=== PATIENT | male | born 1960 | race Caucasian/White ===

== ENCOUNTER 2019-01-18 07:24 | Day surgery (SDC) | payer BC ==
[2019-01-15 10:40] LABS: Absolute Lymphocytes (CBC) 1.3 K/uL (0.7-4.9); Eosinophils % 2.1 % (0-4.4); Lymphocytes % 24.9 % (15.3-44.8); MPV 7.7 fL (7.6-11.3); Monocytes % 8.9 % (3.3-12.3); RBC Red Blood Cell Count 5.21 M/uL (4.33-5.43)
--- NOTE | 2019-01-15 10:43 | RAD REPORT ---
EXAM DESCRIPTION: Christos Walsh And Abdi (2 Views)01/15/2019 10:26 am CLINICAL HISTORY: Preop for hernia surgery COMPARISON: None FINDINGS: 8 millimeter nodular opacity overlies each lung base. Upper lobes are clear. Heart is normal size 3 millimeter radiopaque structure overlies the anterior soft tissues of the right chest IMPRESSION: Nodular opacity overlies each lung base probably representing nipple shadows. As 1 could represent a pulmonary nodule it is recommended that the patient have frontal and oblique views of th e chest with nipple markers for further evaluation
[2019-01-15 10:44] LABS: Potassium 3.9 mmol/L (3.5-5.1)
--- NOTE | 2019-01-15 16:43 | EKG ---
Test Date: 2019-01-15 Test Time: 10:11:35 Folder Seamer Automatic: PETRONA MEASUREMENT RESULTS: Intervals: Rate: 90 OR: 146 QRSD: 148 QT: 396 QTc: 484 [place]: P: 53 OR: 146 QRS: 39 T: 22 INTERPRETIVE STATEMENTS: Normal sinus rhythm Right bundle branch block Abnormal ECG No previous ECG available for comparison Electronically Signed On 01-15-19 16:41:44 CDT by Ozzy Victoria
[2019-01-18] MEDS ORDERED: NA CHLORIDE 0.9% 1,000 ML ONE (07:46)
[2019-01-18] MEDS ORDERED: ROCURONIUM 50 MG/5 ML VIAL IV ONE (08:34)
[2019-01-18] MEDS ORDERED: PROPOFOL 200 MG/20 ML VIAL IV ONE (08:34)
[2019-01-18] MEDS ORDERED: MIDAZOLAM HCL 2 MG/2 ML INJ ONE (08:34)
[2019-01-18] MEDS ORDERED: LIDOCAINE 1% MPF 5 ML VIAL ONE (08:34)
[2019-01-18] MEDS ORDERED: FENTANYL CITR 100 MCG/2 ML ONE ×2 (08:34→10:00)
[2019-01-18] MEDS ORDERED: CIPROFLOXACIN 400mg IV 400 MG/200 ML BAG IV ONE (08:42)
--- OUTSIDE RECORDS SUMMARY | 2019-01-18 08:53 | XMS REPORT | Continuity of Care Document ---
:1960 Author Organization [facility] Christoph Veeva [place] Care Team Providers Name Role Phone [facility] Christoph Information [place] Unavailable Unavailable Problems Problem Status Onset Classification Date Comments Source Date Reported Discharge 02/26/2017 [facility] Diagnosis: 7 Puncture wound to foot LEG INJURY Active [place] [id number] Christoph Anxiety Active Problem 02/26/2017 [facility] Hypertension Active Problem 02/26/2017 [facility] Medications Medication Details Route Status Patient Ordering Order Source Instructions Provider Date Ibuprofen 800 mg, 1 Inactive tab, 017 [place] Route: PO, Drug form: TAB, ONCE, Dosing Weight 90.909, kg, Priority: STAT, Start date: 02/23/17 21:08:00 CDT, Stop date: 02/23/17 21:08:00 CDTNotes: (Same as: Motrin) "Do Not Crush&quot ; Take with food. Acetaminophen 1 - 2 tab, Active MH 300 MG / Codeine PO, Q6H, 017 [place] Phosphate 60 MG PRN Pain, Oral Tablet X 4 day, # [Tylenol with 32 tab, 0 Codeine #4] Refill(s) ibuprofen 800 mg 800 mg=1 Active MH oral tablet tab, PO, 017 [place] Q8H, PRN Pain, Take with food, X 10 day, # 30 tab, 0 Refill(s) clindamycin 300 300 mg=1 Active MH mg oral capsule cap, PO, 017 [place] Q6H, X 10 day, # 40 cap, 0 Refill(s) Acetaminophen 1 tab, Inactive MH 325 MG / Route: 017 [place] Hydrocodone S&SPIT, Bitartrate 10 MG Drug Form: Oral Tablet TAB, [[place] 10/325] Dosing Weight 90.909, kg, ONCE, STAT, Start date: 02/23/17 19:12:00 CDT, Stop date: 02/23/17 19:12:00 CDTNotes: Do not exceed 4gm/day of acetaminop hen. (Same as: [place] 325/10) Acetaminophen 1 tab, Inactive 325 MG / Route: PO, 017 [place] Hydrocodone Drug Form: Bitartrate 7.5 TAB, MG Oral Tablet Dosing [[place] 7.5/325] Weight 84.773, kg, ONCE, STAT, Start date: 02/23/17 17:57:00 CDT, Stop date: 02/23/17 17:57:00 CDTNotes: Same as [place] 325-7.5mg Do not exceed 4gm/day of acetaminop hen. Allergies, Adverse Reactions, Alerts Substance Category Reaction Severity Reaction Status Date Comments Source type Reported penicillins Assertion Drug Active Rash <sup>1</sup allergy [place] > Immunizations Immunization Date Site Status Last Comments Source Given Updated diphtheria/pertus Left completed Wee [facility] sis, acel/tetanus 7 Deltoid adult Results No Data Provided for This Section Pathology Reports No Data Provided for This Section Diagnostic Reports Report Value Date Source Foot series DX Foot series DX 02/23/[address] [facility] CLINICAL HISTORY: - puncture wound FINDINGS/IMPRESSION: 3 views of the left foot are submitted for review. The submitted images are not optimally positioned. No displaced fractures are visualized. Soft tissue swelling is noted along the dorsum of the left foot. No radiopaque foreign body is visualized. The visualized bones demonstrate normal radiodensity. SL: EFRAIN-AYLIN Consultation Notes No Data Provided for This Section Discharge Summaries No Data Provided for This Section History and Physicals No Data Provided for This Section Vital Signs Vital Sign Value Date Comments Source Systolic (mm Hg) 131 02/24/2017 [facility] Diastolic (mm Hg) 88 02/24/2017 [facility] Respitory Rate 16 02/24/2017 [facility] Heart Rate 99 02/24/2017 [facility] Temperature Oral (F) 98.5 F 02/23/2017 [facility] Heart Rate 104 02/23/2017 [facility] Respitory Rate 18 02/23/2017 [facility] Systolic (mm Hg) 157 02/23/2017 [facility] Diastolic (mm Hg) 86 02/23/2017 [facility] Weight 90.909 02/23/2017 [facility] Height 172.72 cm 02/23/2017 [facility] BMI Calculated 30.47 02/23/2017 [facility] Encounters Location Location Encounter Encounter Reason Attending ADM DC Status Source Details Type Number For Provider Date Date Visit Outpatient [id number] ZACHARIAH 07/31 [facility] [id number] Guilherme 02/23 02/24 [facility] Domingo /2016 [facility] Procedures Procedure Code Date Perfomer Comments Source Extraction of [id number] [facility] wisdom tooth Assessment and Plan No Data Provided for This Section Plan of Care No Data Provided for This Section Social History Social History Date Source Social History TypeResponse 02/28/2016 [facility] Alcohol Type Beer. Frequency: Several times per day. Smoking Status Current every day smoker; Type: Chewing tobacco; Ready to change: No; Lives with someone who smokes; Cigarette Smoking Last 365 Days Yes; Reg Smoking Cessation Counseling Yes Family History No Data Provided for This Section Advance Directives No Data Provided for This Section Functional Status No Data Provided for This Section
--- OUTSIDE RECORDS SUMMARY | 2019-01-18 08:53 | XMS REPORT | Summary of Care ---
:1960 Author Organization [facility] Address [id number] [place] [id number]- Encounter HQ Katerine_eda(FIN) [id number] Date(s): 02/23/17 - 02/23/[address] [phone] Discharge Diagnosis: Puncture wound to foot Discharge Disposition: Home or Self Care Attending Physician: Guilherme Domingo MD Vital Signs Most recent to oldest [Reference Range]: 1 2 Height 172.72 cm (02/23/17 5:57 PM) Temperature Oral [96.4-99.1 DegF] 98.5 DegF (02/23/17 5:57 PM) Blood Pressure [90-140/60-90 mmHg] 131/88 mmHg 157/86 mmHg (02/23/17 10:17 PM) *HI* (02/23/17 5:57 PM) Respiratory Rate [14-20 BRMIN] 16 BRMIN 18 BRMIN (02/23/17 10:17 PM) (02/23/17 5:57 PM) Peripheral Pulse Rate [60-100 bpm] 99 bpm 104 bpm (02/23/17 10:17 PM) *HI* (02/23/17 5:57 PM) Weight 90.909 kg (02/23/17 5:57 PM) Body Mass Index 30.47 m2 (02/23/17 5:57 PM) Problem List Condition Effective Dates Status Health Status Informant Anxiety(Confirmed) Active Hypertension(Confirmed) Active Allergies, Adverse Reactions, Alerts Substance Reaction Severity Status penicillins1 Active 1Rash Medications clindamycin 300 mg oral capsule 300 mg=1 cap, PO, Q6H, X 10 day, # 40 cap, 0 Refill(s) Start Date: 02/23/17 Stop Date: 03/05/17 Status: Orderedibuprofen 800 mg, 1 tab, Route: PO, Drug form: TAB, ONCE, Dosing Weight 90.909, kg, Priority: STAT, Start date: 02/23/17 21:08:00 CDT, Stop date: 02/23/17 21:08:00 CDT Notes: (Same as: Motrin)"Do Not Crush" Take with food. Start Date: 02/23/17 Stop Date: 02/23/17 Status: Completedibuprofen 800 mg oral tablet 800 mg=1 tab, PO, Q8H, PRN Pain, Take with food, X 10 day, # 30 tab, 0 Refill(s) Start Date: 02/23/17 Stop Date: 03/05/17 Status: OrderedNorco 10/325 oral tablet 1 tab, Route: S&SPIT, Drug Form: TAB, Dosing Weight 90.909, kg, ONCE, STAT, Start date: 02/23/1719:12:00 CDT, Stop date: 02/23/17 19:12:00 CDT Notes: Do not exceed 4gm/day of acetaminophen. (Same as: [place] 325/10) Start Date: 02/23/17 Stop Date: 02/23/17 Status: CompletedNorco 7.5/325 oral tablet 1 tab, Route: PO, Drug Form: TAB, Dosing Weight 84.773, kg, ONCE, STAT, Start date: 02/23/17 17:57:00 CDT, Stop date: 02/23/17 17:57:00 CDT Notes: Same as [place] 325-7.5mg Do not exceed 4gm/day of acetaminophen. Start Date: 02/23/17 Stop Date: 02/23/17 Status: DiscontinuedTylenol with Codeine #4 oral tablet 1 - 2 tab, PO, Q6H, PRN Pain, X 4 day, # 32 tab, 0 Refill(s) Start Date: 02/23/17 Stop Date: 02/27/17 Status: Ordered Results No data available for this section Immunizations Given and Recorded Vaccine Date Status Refusal Reason diphtheria/pertussis, acel/tetanus adult 02/23/17 Given Procedures Procedure Date Related Diagnosis Body Site Extraction of wisdom tooth Social History Social History Type Response Alcohol Type Beer. Frequency: Several times per day. Smoking Status Current every day smoker; Type: Chewing tobacco; Ready to change: No; Lives with someone who smokes; Cigarette Smoking Last 365 Days Yes; Reg Smoking Cessation Counseling Yes Assessment and Plan No data available for this section
[2019-01-18] MEDS ORDERED: EPHEDRINE SULF 50 MG/ML VIAL ONE (09:16)
[2019-01-18] MEDS ORDERED: NS 0.9% VIAL 10 ML ONE (09:16)
[2019-01-18] MEDS ORDERED: KETOROLAC 30 MG/ML INJ ONE (09:22)
[2019-01-18] MEDS ORDERED: GLYCOPYRROLATE 0.2 MG/ML SYR ONE (09:22)
[2019-01-18] MEDS ORDERED: NEOSTIGMINE 1 MG/ML -10 ML VIAL ONE (09:23)
[2019-01-18] MEDS ORDERED: ONDANSETRON 4 MG/2 ML VIAL ONE (09:23)
--- NOTE | 2019-01-18 10:20 | P.BOP ---
Preoperative diagnosis: bilateral tender inguinal hernias Postoperative diagnosis: same Primary procedure: Laparoscopic repair of right and left inguinal hernias with mesh Executive Sales Manager: CHRISTOS SPANGLER (INSURANCE LAW SPECIALIST) Estimated blood loss: <10cc Specimen: none Findings: bilateral inguinal hernias Anesthesia: General Complications: None Implants: 3d mesh medium bilateral Transferred to: Recovery Room Condition: Good
[2019-01-18] MEDS: HYDROMORPHONE HCL 1 MG/ML INJ ONE ×2 (10:39→10:48)
--- NOTE | 2019-01-29 04:06 | OP ---
Date of Procedure: 01/18/2019 Surgeon: Porter Warner MD Metallic Yarn Slitting Machine Operator: JOSE Antonio. Preoperative Diagnosis: Bilateral tender inguinal hernias. Postoperative Diagnosis: Bilateral tender inguinal hernias. Procedure: 1.Laparoscopic repair of right inguinal hernia with mesh. 2.Laparoscopic repair of left inguinal hernia with mesh. Estimated Blood Loss: Less than 10 cc. Specimen: None. Findings: Bilateral inguinal hernias. Anesthesia: General plus local. Implant: A 3D medium mesh, right and left. Indications: This is the case of a 58-year-old patient, comes to us with a tender bilateral inguinal hernias. The benefits, alternatives, and risks of repair laparoscopic versus open with the use of m esh fully explained to the patient, which included, but are not limited to infection, bleeding, damag e to adjacent structures, anesthesia complication, chronic numbness, chronic pain, testicular damage, ME, even . He also understands this may not relieve any symptoms, he might need more than one surgical intervention. He understands we have intention to use mesh in that region, the pros and con s of mesh placement were discussed in details. He was allowed to ask questions and all of them were answered to his satisfaction. At the end of the discussion, he did allow me to use mesh. The area o f concern left and right was marked by me and the patient in the holding room. Description Of Procedure: Patient was brought to the operating room, placed in supine position. Ane sthesia was done without complication. Abdominal area was prepped and draped in a sterile fashion an d inguinal area too. An incision was made again in the infraumbilical region. Incision was carried down until we find an anterior rectus sheath. It was opened and the muscle retracted laterally to ex pose the posterior rectus sheath. The extraperitoneal space was developed with the help of blunt dis section gently and a balloon tipped space maker catheter placed into the area, which was opened and t oward the pubic symphysis. A laparoscope was placed in the area and the balloon was inflated under d irect visualization to create the extraperitoneal space. The balloon was deflated, it was a double s ize balloon. Then, a 5 mm trocar was placed after insufflating the area just above the pubic symphys is and other one between the first and second one. The preperitoneal space was further developed by exposing the inferior epigastric vessels and keeping them anteriorly. Pa ligament was dissected laterally to the junction with the iliac veins. The dissection was continued inferiorly to the iliop ubic tract, avoiding damage to the femoral branch of the genitofemoral nerve and the lateral femoral cutaneous nerve. The cord structures were visualized on the left side and the right side. They were skeletonized. The hernia sac was reduced with gentle traction back into the peritoneal space. The same was done with the left and right side. At that moment, we proceeded to introduce a 3D mesh medi um, first on the left side on the working space to cover the direct/indirect spaces and we secured th at mesh into place with SorbaFix laterally and superior to the pubic tract and inferomedial to the Co oper ligament. The same was done with the opposite side on the right side, once again securing that in place laterally and superior to the iliopubic tract and inferomedial to the Pa ligament. We i nspected the area once again, ensuring adequate hemostasis. A local anesthetic was applied over the area and holding the mesh in place and making sure that the hernia sac was still reduced into the per itoneal cavity. We proceeded to deflate the area under direct visualization and removed the 5 mm tro cars, closed the anterior rectus sheath with 1 Vicryl and approximated the skin. Sponge count, instr ument counts were correct. At the end of the case, the testicles were in the scrotum. Patient was s ent to recovery in stable condition. Disposition: Home. Activity: As tolerated. No heavy lifting. Followup: Follow up in my office in 1 week. Call for appointment on [phone]. Keep the area dry fo r 48 hours, then may shower. Medications: See orders. HM/MODL Voice ID: [id number] Report ID: [id number]
== END 2019-01-18 12:36 | disposition home or self-care (01) ==
LOC: OR 07:24
PROVIDERS: ATTEND Surgery
PROC: 0YUA0JZ Supplement Bilateral Inguinal Region with Synthetic Substitute, Open Approach (ICD-10-PCS; principal; 2019-01-18 09:15)
DX: K40.20 Bilateral inguinal hernia, without obstruction or gangrene, not specified as recurrent (principal); E11.40 Type 2 diabetes mellitus with diabetic neuropathy, unspecified; I10 Essential (primary) hypertension; K21.9 Gastro-esophageal reflux disease without esophagitis; Z79.84 Long term (current) use of oral hypoglycemic drugs; Z79.899 Other long term (current) drug therapy
CPT/HCPCS: 36415; 71046; 80048; 82962; 85025; 93005; J0744; J1170; J2250; J2405; J2704; J2710; J3010; J7030

== ENCOUNTER 2021-11-24 20:11 | Emergency (ER) | payer BC ==
--- OUTSIDE RECORDS SUMMARY | 2021-11-24 20:15 | XMS REPORT | Continuity of Care Document ---
:1960 Author Organization [facility] Address [address] [place] [address] Care Team Providers Name Role Phone Lit Attending Clinician Unavailable Savage Attending Clinician Unavailable [facility]FF Attending Clinician Unavailable Lit Admitting Clinician Unavailable Savage Admitting Clinician Unavailable Payers Payer Name Policy Type Policy Number Effective Date Expiration Date S ru[place] [id number] 2004 00:00:00 Problems Condition Condition Condition Status Onset Resolution Last Treating Co mments Source Name Details Category Date Date Treatment Clinician Date Elevated Elevated Problem Active [facility] Liver 709 Family enzymes Enzymes 00:00: Practic level Level 00 e Alcohol Alcohol Problem Active [facility] intake Intake 708 Family above above 00:00: Practic recommende Recommende 00 e d sensible d Sensible limits Limits Type 2 Type 2 Problem Active [facility] diabetes Diabetes 703 Family mellitus Mellitus 00:00: Practi c 00 e Mixed Mixed Problem Active [facility] hyperlipid Hyperlipid 919 [facility] emia emia 00:00: Practic 00 e LEG INJURY Diagnosis Active 2017-04-21 Memoria 8-13 13:24:00 l LEG 00:00: Christoph INJURY 00 Active 02/23/2017 [facility] Hypogonadi Hypogonadi Problem Active [facility] sm 11-11 Family 00:00: Practic 00 e Anxiety Anxiety Problem Active [facility] 11-11 Family 00:00: Practic 00 e Essential Essential Problem Active Marcial shira hypertensi Hypertensi 11-11 Fa teodora on on 00:00: Practic 00 e Primary Primary Problem Active [facility] erectile Erectile 5- Family dysfunctio Dysfunctio 00:00: Pr actic n n 00 e Hypertensi Problem Active 2017-02-26 M emoria ve 00:45:40 l disorder, Nathalie systemic Hypertensi arterial ve (disorder) disorder, systemic arterial (disorder) Active Problem 02/26/2017 [facility] History of Past Illness Condition Condition Condition Status Onset Resolution Last Treating Co mments Source Name Details Category Date Date Treatment Clinician Date Puncture Problem 2017-02-26 2017-02-26 Memoria wound 02-23 00:45:40 00:45:40 l without Puncture 05:00: Rocio nn foreign wound 00 body, without unspecifie foreign d foot, body, initial unspecifie encounter d foot, initial encounter 02/23/2017 02/26/2017 [facility] Allergies, Adverse Reactions, Alerts Allergy Allergy Status Severity Reaction(s) Onset Inactive Treating Comm ents Source Name Type Date Date Clinician penicill penicill Active Memori a ins<sup> ins<sup> l 1</sup> 1</sup> Christoph PENICILL Allergy Active [facility] INS to Family substanc Practic e e Social History Social Habit Start Date Stop Date Quantity Comments Source Social History 2016-02-28 2016-02-28 [facility] 23:53:02 23:53:02 Smoking Status Start Date Stop Date Source Never Smoker [facility] Medications Ordered Filled Start Stop Current Ordering Indication Dosage Frequency Signature Comments Components Source Medication Medication Date Date Medication? Clinician (SIG) Name Name Ibuprofen No Notes: Memori a 8-14 (Same as: l 02:08: Motrin) Nathalie 00 "Do Not Crush" Take with food. Acetaminoph Yes 1 - 2 tab, Memoria en 300 MG / 8-14 PO, Q6H, l Codeine 02:02: PRN Pain, Rocio nn Phosphate 00 X 4 day, # 60 MG Oral 32 tab, 0 Tablet Refill(s) [Tylenol with Codeine #4] ibuprofen Yes 800 mg = 1 Me moria 800 mg oral 8-14 tab, PO, l tablet 02:02: Q8H, PRN Christoph 00 Pain, Take with food, X 10 day, # 30 tab, 0 Refill(s) clindamycin Yes 300 mg = 1 Memoria 300 mg oral 8-14 cap, PO, l capsule 02:02: Q6H, X 10 Rocio nn day, # 40 cap, 0 Refill(s) Acetaminoph No Notes: Do M emoria en 325 MG / 02-24 not exceed l Hydrocodone 00:12: 4gm/day of Nathalie Bitartrate 00 acetaminop 10 MG Oral hen. Tablet (Same as: [Hollis Hollis 10/325] 325/10) Acetaminoph No Notes: Carlos unique en 325 MG / 02-23 Same as l Hydrocodone 22:57: Hollis Rocio nn Bitartrate 00 325-7.5mg 7.5 MG Oral Do not Tablet exceed [Hollis 4gm/day of 7.5/325] acetaminop hen. amlodipine amlodipine No amlodipine [facility] 10 mg 10 mg 10 mg Family tablet TAKE tablet TAKE tablet Practic 1 TABLET BY 1 TABLET BY TAKE 1 e MOUTH EVERY MOUTH EVERY TABLET BY DAY IN THE DAY IN THE MOUTH EVENING EVENING EVERY DAY IN THE EVENING Farxiga 10 Farxiga 10 No Farxiga 10 Village mg tablet mg tablet mg tablet Family TAKE 1 TAKE 1 TAKE 1 Practic TABLET BY TABLET BY TABLET BY e MOUTH EVERY MOUTH EVERY MOUTH DAY DAY EVERY DAY glipizide glipizide No glipizide [facility] 2.5 2.5 2.5 Family mg-metformi mg-metformi mg-metform Practic n 500 mg n 500 mg in 500 mg e tablet TAKE tablet TAKE tablet 1 TABLET BY 1 TABLET BY TAKE 1 MOUTH TWICE MOUTH TWICE TABLET BY DAILY WITH DAILY WITH MOUTH MEALS MEALS TWICE DAILY WITH MEALS olmesartan olmesartan No olmesartan [facility] 40 mg 40 mg 40 mg Family tablet TAKE tablet TAKE tablet Practic 1 TABLET BY 1 TABLET BY TAKE 1 e MOUTH EVERY MOUTH EVERY TABLET BY DAY DAY MOUTH EVERY DAY omeprazole omeprazole No omeprazole [facility] 40 mg 40 mg 40 mg Family capsule,del capsule,del capsule,de Practic ayed ayed layed e release release release TAKE 1 TAKE 1 TAKE 1 CAPSULE BY CAPSULE BY CAPSULE BY MOUTH EVERY MOUTH EVERY MOUTH DAY DAY EVERY DAY OneTouch OneTouch No OneTouch Marcial shira Delica Delica [facility] Family Lancets 30 Lancets 30 Lancets 30 Practic gauge gauge gauge e OneTouch OneTouch No OneTouch Marcial shira Delica Plus Delica Plus [facility] Lancet 33 Lancet 33 Plus Pract ic gauge USE gauge USE Lancet 33 e ONCE DAILY ONCE DAILY gauge USE ONCE DAILY OneTouch OneTouch No OneTouch Marcial shira Ultra Test Ultra Test Ultra Test Family strips TEST strips TEST strips Practic ONCE DAILY ONCE DAILY TEST ONCE e DAILY OneTouch OneTouch No OneTouch Marcial shira Ultra2 Ultra2 Ultra2 Family Meter USE Meter USE Meter USE Practic DIRECTED DIRECTED e DIRECTED Ozempic Ozempic No Ozempic Vill[facility] e 0.25 mg or 0.25 mg or 0.25 mg or Family 0.5 mg (2 0.5 mg (2 0.5 mg (2 Practic mg/1.5 mL) mg/1.5 mL) mg/1.5 mL) e subcutaneou subcutaneou subcutaneo s pen s pen us pen injector injector injector INJECT 0.5 INJECT 0.5 INJECT 0.5 MG UNDER MG UNDER MG UNDER THE SKIN THE SKIN THE SKIN ONCE WEEKLY ONCE WEEKLY ONCE WEEKLY rosuvastati [facility]suvastati No [facility] 10 mg n 10 mg in 10 mg Famil y tablet TAKE tablet TAKE tablet Practic 1 TABLET BY 1 TABLET BY TAKE 1 e MOUTH EVERY MOUTH EVERY TABLET BY DAY IN THE DAY IN THE MOUTH EVENING EVENING EVERY DAY IN THE EVENING tadalafil tadalafil No tadalafil [facility] 20 mg 20 mg 20 mg Family tablet TAKE tablet TAKE tablet Practic 1 TABLET BY 1 TABLET BY TAKE 1 e MOUTH EVERY MOUTH EVERY TABLET BY DAY DAY MOUTH NEEDED NEEDED EVERY DAY NEEDED [facility]ulosin [facility] 0.4 mg 0.4 mg 0.4 mg Family capsule capsule capsule Practi c TAKE 1 TAKE 1 TAKE 1 e CAPSULE BY CAPSULE BY CAPSULE BY MOUTH EVERY MOUTH EVERY MOUTH DAY DAY EVERY DAY testosteron testosteron No [facility] e 1.62 % e 1.62 % ne 1.62 % Fa teodora (40.5 (40.5 (40.5 Practic mg/2.5 mg/2.5 mg/2.5 e gram) gram) gram) transdermal transdermal transderma gel packet gel packet l gel APPLY 1 APPLY 1 packet PACKET PACKET APPLY 1 TOPICALLY TOPICALLY PACKET TO THE TO THE TOPICALLY AFFECTED AFFECTED TO THE AREA EVERY AREA EVERY AFFECTED MORNING MORNING AREA EVERY MORNING venlafaxine venlafaxine No venlafaxin [facility] ER 150 mg ER 150 mg e ER 150 F amily capsule,ext capsule,ext mg P ractic ended ended capsule,ex e release 24 release 24 tended hr TAKE 1 hr TAKE 1 release 24 CAPSULE BY CAPSULE BY hr TAKE 1 MOUTH EVERY MOUTH EVERY CAPSULE BY DAY DAY MOUTH EVERY DAY Immunizations Ordered Immunization Filled Immunization Date Status Commen ts Source Name Name pneumococcal pneumococcal 2020-01-19 Completed [facility] Fa teodora polysaccharide PPV23 polysaccharide PPV23 18:11:00 Practice Influenza, Influenza, 2017-04-01 Completed [facility] injectable, MDCK, injectable, MDCK, 13:27:00 Practice quadrivalent quadrivalent diphtheria/pertussis, 2017-02-[address] [facility] orial acel/tetanus adult 02:55:00 Gui paniagua Vital Signs Vital Name Observation Time Observation Value Comments Source BP Diastolic 2021-10-23 00:00:00 95 mm[Hg] [facility] Practice Height 2021-10-23 00:00:00 68 [in_i] [facility] Practice BMI (Body Mass Index) 2021-10-23 00:00:00 29.5 kg/m2 [facility] Practice BP Systolic 2021-10-23 00:00:00 162 mm[Hg] [facility] Body Weight 2021-10-23 00:00:00 194 [lb_av] [facility] Practice BP Diastolic 2021-03-01 00:00:00 98 mm[Hg] [facility] Practice Height 2021-03-01 00:00:00 68 [in_i] [facility] Practice BMI (Body Mass Index) 2021-03-01 00:00:00 28.1 kg/m2 [facility] Practice BP Systolic 2021-03-01 00:00:00 155 mm[Hg] [facility] Practice Body Weight 2021-03-01 00:00:00 185 [lb_av] [facility] BP Diastolic 2020-07-03 00:00:00 89 mm[Hg] [facility] Practice Height 2020-07-03 00:00:00 68 [in_i] [facility] Practice BMI (Body Mass Index) 2020-07-03 00:00:00 29 kg/m2 [facility] Practice BP Systolic 2020-07-03 00:00:00 137 mm[Hg] [facility] Practice Body Weight 2020-07-03 00:00:00 191 [lb_av] [facility] Practice BP Diastolic 2020-01-19 00:00:00 94 mm[Hg] [place] Height 2020-01-19 00:00:00 68 [in_i] [place] BMI (Body Mass Index) 2020-01-19 00:00:00 29.3 kg/m2 [place] BP Systolic 2020-01-19 00:00:00 150 mm[Hg] [place] Body Weight 2020-01-19 00:00:00 193 [lb_av] [place] Systolic (mm Hg) 2017-02-24 03:17:00 Carlos rial Nathalie Diastolic (mm Hg) 2017-02-24 03:17:00 Mem orial Christoph Respitory Rate 2017-02-24 03:17:00 Memori al Christoph Heart Rate 2017-02-24 03:17:00 [facility] Temperature Oral (F) 2017-02-23 22:57:00 98.5 F [facility] Heart Rate 2017-02-23 22:57:00 [facility] Nathalie Respitory Rate 2017-02-23 22:57:00 Memori al Nathalie Systolic (mm Hg) 2017-02-23 22:57:00 Carlos rial Nathalie Diastolic (mm Hg) 2017-02-23 22:57:00 Mem orial Christoph Weight 2017-02-23 22:57:00 [facility] Nathalie Height 2017-02-23 22:57:00 172.72 cm [facility] Nathalie BMI Calculated 2017-02-23 22:57:00 Memori al Nathalie Procedures Procedure Date / Time Performed Performing Clinician [facility] e Hernia Repair 2018-07-14 00:00:00 [facility] Lynda neves Practice Orthopedic Surgery 2018-07-14 00:00:00 [facility] Colonoscopy 2017-07-14 00:00:00 [facility] ly [facility] Planned Activity Planned Date Details Comments Source Diagnostic Test Pending 2021-10-23 HbA1c (hemoglobin [facility] 00:00:00 A1c), blood [code Practice = HbA1c (hemoglobin A1c), blood] Diagnostic Test Pending 2021-10-23 lipid panel, Vill age Family 00:00:00 serum [code = Practice lipid panel, serum] Diagnostic Test Pending 2021-10-23 CMP, serum or Marcial shira Family 00:00:00 plasma [code = Practice CMP, serum or plasma] Diagnostic Test Pending 2021-10-23 CBC w/ auto diff [facility] Family 00:00:00 [code = CBC w/ Practice auto diff] Diagnostic Test Pending 2021-10-23 testosterone, Marcial silva Family 00:00:00 total, serum Practice [code = testosterone, total, serum] Future Appointment 2022-01-22 Harika Torres [facility] age Family 00:00:00 [id number] [facility]; [address], [place] [address] Instructions [facility] Practice Encounters Start End Encounter Admission Attending Care Care Encounter Source Date/Time Date/Time Type Type Clinicians Facility Department ID 2021-10-23 2021-10-23 Outpatient Zuñiga-Gor_M VFP VFP [id number] [facility] 11:46:00 11:46:00 [id number] Family Practic e 2021-10-23 2021-10-23 Outpatient Zuñiga-Teofilo_M_ VFP VFP [id number] [facility] 11:46:00 11:46:00 BELÉN [id number] Family Practic e 2021-10-23 2021-10-23 Harika O VFP [place] - [id number] [facility] 00:00:00 00:00:00 Brian [facility] Lynda neves MD: [id number] Medical - Prac tic Shadow VM_NASIR_Maxx e [facility], [address], [place] [address] , Ph. 2021-10-18 2021-10-18 Outpatient Zuñiga-Gor_M VFP VFP [id number] [facility] 01:59:00 01:59:00 [id number] Family Practic e 2021-10-18 2021-10-18 Outpatient Zuñiga-Gor_M VFP VFP [id number] [facility] 01:59:00 01:59:00 [id number] Family Practic e 2021-07-25 2021-07-25 Outpatient Zuñiga-Gor_M VFP VFP [id number] [facility] 12:39:00 12:39:00 Family Practic e 2021-06-03 2021-06-03 Outpatient Zuñiga-Gor_M VFP VFP [id number] [facility] 02:41:00 02:41:00 [id number] Family Practic e 2021-05-252021-05-25 Outpatient Zuñiga-Gor_M VFP VFP [id number] [facility] 01:44:00 01:44:00 [id number] Family Practic e 2021-04-20 2021-04-20 Outpatient Zuñiga-Gor_M VFP VFP [id number] [facility] 02:28:00 02:28:00 [id number] Family Practic e 2021-04-03 2021-04-03 Outpatient [facility], [facility] [id number] [place] 00:00:00 00:00:[address] 2021-04-03 2021-04-03 Outpatient SIFF, [facility] [id number] [place] 00:00:00 00:00:[address] 2021-03-17 2021-03-17 Outpatient Zuñiag-Gor_M VFP VFP [id number] [facility] 01:02:00 01:02:00 [id number] Family Practic e 2021-03-03 2021-03-03 Outpatient Zuñiga-Gor_M_ VFP VFP [id number] [facility] 10:45:00 10:45:00 WAG [id number] Family Practic e 2021-03-03 2021-03-03 Outpatient Zuñiga-Gor_M VFP VFP [id number] [facility] 10:45:00 10:45:00 [id number] Family Practic e 2021-03-01 2021-03-01 Outpatient Zuñiga-Gor_M VFP VFP [id number] [facility] 05:14:00 05:14:00 [id number] Family Practic e 2021-03-01 2021-03-01 Harika O VFP [place] - [id number] [facility] 00:00:00 00:00:00 Brian [facility] Lynda neves MD: [id number] Medical - Prac tic Shadow VM[facility], [address], [place] [address] , Ph. 2020-10-18 2020-10-18 Outpatient SIFF, [facility] [id number] [place] 00:00:00 00:00:[address] 2020-10-18 2020-10-18 Outpatient SIFF, [facility] [id number] [place] 00:00:00 00:00:[address] 2020-09-15 2020-09-15 Outpatient Zuñiga-Gor_M_ VFP VFP [id number] [facility] 11:00:00 11:00:00 [facility] [id number] Family Practic e 2020-09-15 2020-09-15 Outpatient Zuñiga-Gor_M_ VFP VFP [id number] [facility] 11:00:00 11:00:00 [facility] [id number] Family Practic e 2020-08-27 2020-08-27 Outpatient Zuñiga-Gor_M_ VFP VFP [id number] [facility] 01:03:00 01:03:00 VAMSHI [id number] Family Practic e 2020-08-27 2020-08-27 Outpatient Zuñiga-Gor_M_ VFP VFP [id number] [facility] 01:03:00 01:03:00 [facility] [id number] Family Practic e 2020-08-27 2020-08-27 Outpatient Zuñiga-Gor_M VFP VFP [id number] [facility] 01:03:00 01:03:00 [id number] Family Practic e 2020-08-27 2020-08-27 Outpatient Zuñiga-Gor_M VFP VFP [id number] [facility] 01:03:00 01:03:00 [id number] Family Practic e 2020-07-23 2020-07-23 Outpatient Zuñiga-Gor_M_ VFP VFP [id number] [facility] 01:01:00 01:01:00 VAMSHI [id number] Family Practic e 2020-07-04 2020-07-04 Outpatient Zuñiga-Gor_M_ VFP VFP [id number] [facility] 01:12:00 01:12:00 VAMSHI [id number] Family Practic e 2020-07-03 2020-07-03 Outpatient Zuñiga-Gor_M_ VFP VFP [id number] [facility] 05:09:00 05:09:00 VAMSHI [id number] Family Practic e 2020-07-03 2020-07-03 Harika O VFP [place] - [id number] [facility] 00:00:00 00:00:00 Brian, [facility] Jacki edinson ANNA: [id number] Medical - Pract [facility], [place] [address], ([facility]) [place] [address] , Ph. 2020-06-30 2020-06-30 Outpatient Zuñiga-Gor_M_ VFP VFP [id number] [facility] 04:52:00 04:52:00 YODIT [id number] Family Practic e 2020-02-04 2020-02-04 Outpatient Zuñiga-Gor_M_ VFP VFP [id number] [facility] 12:59:00 12:59:00 YODIT [id number] Family Practic e 2020-02-04 2020-02-04 Outpatient Zuñiga-Gor_M VFP VFP [id number] [facility] 12:59:00 12:59:00 [id number] Family Practic e 2020-01-24 2020-01-24 Outpatient Zuñiga-Gor_M VFP VFP [id number] [facility] 11:36:00 11:36:00 [id number] Family Practic e 2020-01-19 2020-01-19 Outpatient Zuñiga-Gor_M_ VFP VFP [id number] [facility] 05:11:00 05:11:00 YODIT [id number] Family Practic e 2020-01-19 2020-01-19 Harika O VFP [place] - [id number] [facility] 00:00:00 00:00:00 Brian, [facility] Fam edinson MD: [id number] Medical - Pract [facility], [place] [address], ([facility]) [place] [address] , Ph. 2020-01-18 2020-01-18 Outpatient Zuñiga-Gor_M_ VFP VFP [id number] [facility] 11:51:00 11:51:00 YODIT [id number] Family Practic e 2020-01-05 2020-01-05 Outpatient Zuñiga-Gor_M VFP VFP [id number] [facility] 05:34:00 05:34:00 [id number] Family Practic e 2020-01-05 2020-01-05 Outpatient Zuñiga-Gor_M VFP VFP [id number] [facility] 05:34:00 05:34:00 [id number] Family Practic e 2020-01-05 2020-01-05 Outpatient Zuñiga-Gor_M VFP VFP [id number] [facility] 05:34:00 05:34:00 [id number] Family Practic e 2019-12-29 2019-12-29 Outpatient Zuñiga-Gor_M_ VFP VFP [id number] [facility] 09:56:00 09:56:00 YODIT [id number] Family Practic e 2019-05-20 2019-05-20 Outpatient Yogesh-Teofilo_Mana VFP VFP [id number] [facility] 01:17:00 01:17:00 [id number] Family Practic e 2019-05-20 2019-05-20 Outpatient Yogesh-Teofilo_M VFP VFP [id number] [facility] 01:17:00 01:17:00 [id number] Family Practic e 2019-05-20 2019-05-20 Outpatient Yogesh-Teofilo_M VFP VFP [id number] [facility] 01:17:00 01:17:00 [id number] Family Practic e 2017-02-23 2017-02-24 Emergency [facility] [id number] Memoria 22:53:00 03:20:00 jordan Hawthorne 01 l [facility] 2016-07-31 2016-07-31 [facility] [id number] Memoria 07:45:00 07:45:00 Geraldo Hawthorne Results This patient has no known results.
--- NOTE | 2021-11-24 21:03 | RAD REPORT ---
EXAM DESCRIPTION: CT - [id number] - 11/24/2021 8:45 pm CLINICAL HISTORY: fall COMPARISON: No comparisons TECHNIQUE: Axial 5 mm thick images of the head were obtained. Axial 2 mm thick images of the cervical spine were obtained with sagittal and coronal reconstruction images generated and reviewed. All CT scans are performed using dose optimization technique as appropriate and may include automated exposure control or mA/KV adjustment according to patient size. FINDINGS: CT HEAD WITHOUT CONTRAST: No acute hemorrhage, hydrocephalus or extra-axial collection is identified.No areas of brain edema or midline shift. The paranasal sinuses and mastoids are clear.The calvarium is intact. CT CERVICAL SPINE WITHOUT CONTRAST: No fracture or subluxation.No prevertebral soft tissues swelling is identified. Multilevel degenerati ve changes are present in the spine. Neural foraminal narrowing at C4-5 and C5-C6 is moderate. IMPRESSION: No acute intracranial or cervical spine findings.
[2021-11-24] MEDS ORDERED: ONDANSETRON 4 MG/2 ML VIAL ONE (21:08)
--- NOTE | 2021-11-24 21:15 | ER ---
Nurse's Notes [facility] Name: Kailash Dvais Age: 61 yrs Sex: Male : 1960 Arrival Date: 11/24/2021 Time: 20:16 Bed 2 Private MD: Diagnosis: Laceration without foreign body of unspecified part of head;Fall on same level, unspecified;Alcohol use, unspecified Presentation: 11/24 20:19 Chief complaint: EMS states: "His said he vomited, passed out, and fell from his tw5 chair. He also has a laceration on his from hitting car door earlier. He was awake, alert and not bleeding when we got there.". Care prior to arrival: Cervical collar in place. Mechanism of Injury: Fall out of chair. Trauma event details: Injury occurred in the [facility], Injury occurred: at home. Injury occurred: November 24, 2021 Injury occurred at: 20:09. 20:19 Acuity: JAIME 2 tw5 20:19 Method Of Arrival: EMS: [facility] tw5 20:22 Care prior to arrival: Medication(s) given: 500 ml of NS. tw5 20:32 Coronavirus screen: Vaccine status: Patient reports receiving the 2nd dose of the covid tw5 vaccine. [employer]. Ebola Screen: Patient negative for fever greater than or equal to 101.5 degrees Fahrenheit, and additional compatible Ebola Virus Disease symptoms Patient denies exposure to infectious person. Patient denies travel to an Ebola-affected area in the 21 days before illness onset. Initial Sepsis Screen: Does the patient meet any 2 criteria? No. Patient's initial sepsis screen is negative. Does the patient have a suspected source of infection? No. Patient's initial sepsis screen is negative. Risk Assessment: Do you want to hurt yourself or someone else? Patient reports no desire to harm self or others. Onset of symptoms was November 24, 2021 at 20:09. Historical: - Allergies: 20:23 PENICILLINS; tw5 - PMHx: 20:23 Depressive disorder; enlarged prostate; gerd; Type 2 diabetes mellitus; Hypertensive tw5 disorder; - Immunization history: Last tetanus immunization: unknown Last tetanus immunization: unknown. - Social history:: Smoking status: Patient reports use of chewing tobacco. Patient uses alcohol, claims drinking about a 6 pack/day. Screenin:31 Abuse screen: Denies threats or abuse. Denies injuries from another. Tuberculosis tw5 screening: No symptoms or risk factors identified. Primary Survey: 20:19 NO uncontrolled hemorrhage observed. A:. tw5 20:30 Breathing/Chest: Respiratory effort: spontaneous. Circulation: Pulses: palpable right tw5 radial artery and left radial artery. Disability Pupils are equal, round, reactive to light and accommodation. Exposure/Environment: There is no evidence of uncontrolled external bleeding. Reassessment. Assessment: 20:19 General: Appears in no apparent distress. uncomfortable, Behavior is calm, cooperative, tw5 appropriate for age. Pain: Denies pain. 21:39 Reassessment: Patient appears in no apparent distress at this time. Patient and/or jb4 family updated on plan of care and expected duration. Pain level reassessed. Patient is alert, oriented x 3, equal unlabored respirations, skin warm/dry/pink. Vital Signs: 20:24 BP 128 / 74; Pulse 62; Resp 18; Temp 98.6; Pulse Ox 83% on R/A; Weight 88.45 kg; Height tw5 5 ft. 9 in. (175.26 cm); Pain 0/10; 20:32 BP 116 / 61; Pulse 98; Resp 14; Pulse Ox 89% on 6 lpm NC; tw5 20:24 Body Mass Index 28.80 (88.45 kg, 175.26 cm) tw5 20:24 glucose 195 tw5 Anthony Coma Score: 20:30 Eye Response: spontaneous(4). Verbal Response: confused(4). Motor Response: obeys tw5 commands(6). Total: 14. Trauma Score (Adult): 20:30 Eye Response: spontaneous(1); Verbal Response: confused(1); Motor Response: obeys tw5 commands(2); Systolic BP: > 89 mm Hg(4); Respiratory Rate: 10 to 29 per min(4); Leigh Score: 14; Trauma Score: 12 ED Course: 20:16 Patient arrived in ED. ds4 20:16 Yasir Cochran PA is PHCP. cp 20:16 Tomy Jordan DO is Attending Physician. cp 20:21 Triage completed. tw5 20:32 Arm band placed on right wrist. tw5 20:47 CT Head C Spine In Process Unspecified. EDMS 20:49 Mayo Sainz, RN is Primary Nurse. jb4 21:39 Patient has correct armband on for positive identification. Placed in gown. Bed in low jb4 position. Call light in reach. Side rails up X 1. 21:39 No provider procedures requiring assistance completed. IV discontinued, intact, jb4 bleeding controlled, No redness/swelling at site. Pressure dressing applied. Administered Medications: 21:32 Not Given (Patient Refused): Zofran (Ondansetron) 4 mg IVP once; over 2 minutes jb4 Intake: 20:30 PO: 0ml; Total: 0ml. tw5 Output: 20:30 Urine: 0ml; Total: 0ml. tw5 Outcome: 21:14 Discharge ordered by MD. cp 21:39 Discharged to home via wheelchair, with family. jb4 21:39 Condition: stable 21:39 Discharge instructions given to patient, Instructed on discharge instructions, follow up and referral plans. Demonstrated understanding of instructions, follow-up care. 21:41 Patient left the ED. jb4 Signatures: Dispatcher [employer] EDIL Cl Zamudio ds4 Yasir Cochran PA PA cp Mayo Sainz, RN RN jb4 Lorena Perla tw5 Corrections: (The following items were deleted from the chart) 20:32 20:31 Immunization history Last tetanus immunization: - up to date. states he is tw5 up to date . tw5
--- NOTE | 2021-11-24 21:15 | EDPHYS ---
Physician Documentation [facility] Name: Kailash Davis Age: 61 yrs Sex: Male : 1960 Arrival Date: 11/24/2021 Time: 20:16 Bed 2 Private MD: ED Physician Tomy Jordan HPI: 11/24 20:15 This 61 yrs old Male presents to ER via EMS with complaints of Fall Injury. cp 20:15 Details of fall: The patient fell from an upright position, while standing. cp 20:15 Onset: The symptoms/episode began/occurred today. cp 20:15 Associated injuries: The patient sustained injury to the head, laceration, of the left cp frontal area. Patient admits to drinking alcohol today. EMS reports patient stood up and passed out causing him to hit head. Historical: - Allergies: 20:23 PENICILLINS; tw5 - PMHx: 20:23 Depressive disorder; enlarged prostate; gerd; Type 2 diabetes mellitus; Hypertensive tw5 disorder; - Immunization history: Last tetanus immunization: unknown Last tetanus immunization: unknown. - Social history:: Smoking status: Patient reports use of chewing tobacco. Patient uses alcohol, claims drinking about a 6 pack/day. ROS: 20:20 Constitutional: Negative for body aches, chills, fever, poor PO intake. cp 20:20 Neck: Negative for stiffness. cp 20:20 Cardiovascular: Negative for chest pain. 20:20 Respiratory: Negative for cough, shortness of breath, wheezing. 20:20 Abdomen/GI: Negative for abdominal pain, vomiting, diarrhea, constipation. 20:20 Back: Negative for pain at rest, pain with movement. 20:20 Skin: Positive for laceration(s), of the scalp. 20:20 Neuro: Positive for syncope, Negative for altered mental status, headache, weakness. 20:20 All other systems are negative. Exam: 20:20 Constitutional: The patient appears in no acute distress, alert, awake, cp non-diaphoretic, non-toxic, well developed, well nourished. 20:20 Head/face: Noted is a laceration(s), that is deep, that is jagged, of the left frontal cp area. 20:20 Eyes: Periorbital structures: appear normal, Pupils: equal, round, and reactive to light and accomodation, Extraocular movements: intact throughout, Conjunctiva: normal, no exudate, no injection, Sclera: no appreciated abnormality, Lids and lashes: appear normal, bilaterally. 20:20 ENT: External ear(s): are unremarkable, Ear canal(s): are normal, clear, TM's: cp dullness, bilaterally, Nose: is normal, Mouth: Lips: moist, Oral mucosa: moist, Posterior pharynx: Airway: no evidence of obstruction, patent. 20:20 Neck: C-spine: C-collar placed in ED. 20:20 Chest/axilla: Inspection: normal, Palpation: is normal, no crepitus, no tenderness. 20:20 Cardiovascular: Rate: normal, Rhythm: regular, JVD: is not appreciated. 20:20 Respiratory: the patient does not display signs of respiratory distress, Respirations: cp normal, no use of accessory muscles, no retractions, labored breathing, is not present, Breath sounds: are clear throughout, no decreased breath sounds, no stridor, no wheezing. 20:20 Abdomen/GI: Inspection: abdomen appears normal, Palpation: abdomen is soft and non-tender, in all quadrants. 20:20 Back: pain, is absent, ROM is normal. 20:20 Musculoskeletal/extremity: Extremities: all appear grossly normal, with no appreciated pain with palpation. 20:20 Neuro: Orientation: to person, place \T\ time. Mentation: able to follow commands, slow to respond, Motor: moves all fours, strength is normal. Vital Signs: 20:24 BP 128 / 74; Pulse 62; Resp 18; Temp 98.6; Pulse Ox 83% on R/A; Weight 88.45 kg; Height tw5 5 ft. 9 in. (175.26 cm); Pain 0/10; 20:32 BP 116 / 61; Pulse 98; Resp 14; Pulse Ox 89% on 6 lpm NC; tw5 20:24 Body Mass Index 28.80 (88.45 kg, 175.26 cm) tw5 20:24 glucose 195 tw5 Anthony Coma Score: 20:30 Eye Response: spontaneous(4). Verbal Response: confused(4). Motor Response: obeys tw5 commands(6). Total: 14. Trauma Score (Adult): 20:30 Eye Response: spontaneous(1); Verbal Response: confused(1); Motor Response: obeys tw5 commands(2); Systolic BP: > 89 mm Hg(4); Respiratory Rate: 10 to 29 per min(4); Carlyle Score: 14; Trauma Score: 12 Laceration: 21:15 Wound Repair of 4cm ( 1.6in ) subcutaneous laceration to left frontal area. Irregularly cp shaped.. Distal neuro/vascular/tendon intact. Anesthesia: Wound infiltrated with 4 mls of 1% lidocaine w/ Epi. Wound prep: Moderate cleansing by me. Skin closed with 4 Vasile using staple gun. Dressed with Bacitracin, 4x4's. Patient tolerated well. MDM: 20:26 Patient medically screened. cp 21:00 Differential diagnosis: closed head injury, contusion, fracture, laceration, multiple cp trauma. 21:14 Data reviewed: vital signs, nurses notes, radiologic studies, CT scan. cp 21:14 Counseling: I had a detailed discussion with the patient and/or guardian regarding: the cp historical points, exam findings, and any diagnostic results supporting the discharge/admit diagnosis, radiology results, the need for outpatient follow up, a family practitioner, to return to the emergency department if symptoms worsen or persist or if there are any questions or concerns that arise at home. Response to treatment: the patient's symptoms have markedly improved after treatment, and as a result, I will discharge patient. 11/24 20:17 Order name: CT Head C Spine; Complete Time: 21:08 cp 11/24 21:08 Interpretation: Reviewed report. 11/24 20:17 Order name: EKG; Complete Time: 20:18 cp 11/24 20:17 Order name: IV Saline Lock; Complete Time: 21:27 cp 11/24 20:17 Order name: O2 Per Protocol; Complete Time: 21:31 cp 11/24 20:17 Order name: O2 Sat Monitoring; Complete Time: 21:28 cp 11/24 21:12 Order name: Wound dressing; Complete Time: 21:32 cp Administered Medications: 21:32 Not Given (Patient Refused): Zofran (Ondansetron) 4 mg IVP once; over 2 minutes jb4 Disposition: 11/25 10:23 Co-signature as Attending Physician, Tomy SILVA was immediately available on-site ms3 in the Emergency Department for consultation in the care of the patient. . Disposition Summary: 11/24/21 21:14 Discharge Ordered Location: Home cp Problem: new cp Symptoms: have improved cp Condition: Stable cp Diagnosis - Laceration without foreign body of unspecified part of head cp - Fall on same level, unspecified cp - Alcohol use, unspecified cp Followup: cp - With: Emergency Department - When: As needed - Reason: Worsening of condition Discharge Instructions: - Discharge Summary Sheet cp - Alcohol Intoxication cp - Head Injury, Adult cp Forms: - Medication Reconciliation Form cp - Thank You Letter cp - Antibiotic Education cp - Prescription Opioid Use cp Signatures: Dispatcher [employer] EDMS Yasir Cochran PA PA cp Mayo Sainz, RN RN jb4 Tomy Jordan DO DO ms3 Loerna Perla tw5 Corrections: (The following items were deleted from the chart) 11/24 20:32 20:31 Immunization history Last tetanus immunization: - up to date. states he is tw5 up to date . tw5 21:12 20:17 EKG - Nurse/Tech ordered. cp cp : 20:18 PROTIME (+INR)+COAG.LAB.BRZ ordered. EDMS EDMS 21:27 20:17 Cardiac monitoring ordered. cp jb4 21:27 20:17 Labs collected and sent ordered. cp jb4 21:40 20:18 BASIC METABOLIC PANEL+C.LAB.BRZ ordered. EDMS EDMS 21:40 20:18 CBC+H.LAB.BRZ ordered. EDMS EDMS 21:40 20:18 Troponin High Sensitivity+C.LAB.BRZ ordered. EDMS EDMS 21:40 20:18 ETHANOL+C.LAB.BRZ ordered. EDMS EDMS
[2021-11-24] MEDS ORDERED: LIDOCAINE 1% W/EPI 1:100,000 MDV 20 ML VIAL ONE (21:31)
[2021-11-24 23:30] VITALS: TEMP 98.6
[2021-11-24 23:32] VITALS: BP 116/61; O2SAT 89
== END 2021-11-24 21:41 | disposition home or self-care (01) ==
LOC: ER 20:11
PROC: 0JQ10ZZ Repair Face Subcutaneous Tissue and Fascia, Open Approach (ICD-10-PCS; principal; 2021-11-24)
DX: S01.81XA Laceration without foreign body of other part of head, initial encounter (principal); W18.30XA Fall on same level, unspecified, initial encounter; Z72.89 Other problems related to lifestyle; E11.9 Type 2 diabetes mellitus without complications; I10 Essential (primary) hypertension; F17.220 Nicotine dependence, chewing tobacco, uncomplicated; Z88.0 Allergy status to penicillin
CPT/HCPCS: 70450; 72125; 99283; J2405

== ENCOUNTER 2021-11-30 08:58 | Emergency (ER) | payer BC ==
--- OUTSIDE RECORDS SUMMARY | 2021-11-30 09:01 | XMS REPORT | Continuity of Care Document ---
:1960 Author Organization [facility] Address [address] [place] [address] Care Team Providers Name Role Phone Lit Attending Clinician Unavailable Savage Attending Clinician Unavailable SIFF Attending Clinician Unavailable Lit Admitting Clinician Unavailable Savage Admitting Clinician Unavailable Payers Payer Name Policy Type Policy Number Effective Date Expiration Date S ruiz [place] [id number] 2004 00:00:00 Problems Condition Condition Condition Status Onset Resolution Last Treating Co mments Source Name Details Category Date Date Treatment Clinician Date Elevated Elevated Problem Active [facility] Liver 709 Family enzymes Enzymes 00:00: Practic level Level 00 e Alcohol Alcohol Problem Active [facility] intake Intake 708 Family above above 00:00: Practic recommende Recommende 00 e d sensible d Sensible limits Limits Type 2 Type 2 Problem Active [facility] diabetes Diabetes 703 Family mellitus Mellitus 00:00: Practi c 00 e Mixed Mixed Problem Active [facility] hyperlipid Hyperlipid 919 [facility] emia emia 00:00: Practic 00 e LEG INJURY Diagnosis Active 2017-04-21 Memoria 8-13 13:24:00 l LEG 00:00: Christoph INJURY 00 Active 02/23/2017 [facility] Hypogonadi Hypogonadi Problem Active [facility] sm 11-11 Family 00:00: Practic 00 e Anxiety Anxiety Problem Active [facility] 11-11 Family 00:00: Practic 00 e Essential Essential Problem Active Marcial shira hypertensi Hypertensi 11-11 Fa teodora on on 00:00: Practic 00 e Primary Primary Problem Active [facility] erectile Erectile 5- Family dysfunctio Dysfunctio 00:00: Pr actic n n 00 e Hypertensi Problem Active 2017-02-26 M emoria ve 00:45:40 l disorder, [place] systemic Hypertensi arterial ve (disorder) disorder, systemic arterial (disorder) Active Problem 02/26/2017 [facility] History of Past Illness Condition Condition Condition Status Onset Resolution Last Treating Co mments Source Name Details Category Date Date Treatment Clinician Date Puncture Problem 2017-02-26 2017-02-26 Memoria wound 02-23 00:45:40 00:45:40 l without Puncture 05:00: Rocio nn foreign wound 00 body, without unspecifie foreign d foot, body, initial unspecifie encounter d foot, initial encounter 02/23/2017 02/26/2017 [facility] Allergies, Adverse Reactions, Alerts Allergy Allergy Status Severity Reaction(s) Onset Inactive Treating Comm ents Source Name Type Date Date Clinician penicill penicill Active Memori a ins<sup> ins<sup> l 1</sup> 1</sup> Christoph PENICILL Allergy Active [facility] INS to Family substanc Practic e e Social History Social Habit Start Date Stop Date Quantity Comments Source Social History 2016-02-28 2016-02-28 [facility] 23:53:02 23:53:02 Smoking Status Start Date Stop Date Source Never Smoker [facility] Medications Ordered Filled Start Stop Current Ordering Indication Dosage Frequency Signature Comments Components Source Medication Medication Date Date Medication? Clinician (SIG) Name Name Ibuprofen No Notes: Memori a 8-14 (Same as: l 02:08: Motrin) [place] 00 "Do Not Crush" Take with food. [...] not exceed l Hydrocodone 00:12: 4gm/day of [place] Bitartrate 00 acetaminop 10 MG Oral hen. Tablet (Same as: [[place] 10/325] 325/10) Acetaminoph No Notes: Carlos unique en 325 MG / 02-23 Same as l Hydrocodone 22:57: [place] Rocio nn Bitartrate 00 325-7.5mg 7.5 MG Oral Do not Tablet exceed [[place] 4gm/day of 7.5/325] acetaminop hen. amlodipine amlodipine No amlodipine [facility] 10 mg 10 mg 10 mg [...] DAY EVERY DAY glipizide glipizide No glipizide [facility] 2.5 2.5 2.5 Family mg-metformi mg-metformi mg-metform Practic n 500 mg n 500 mg in 500 mg e tablet TAKE tablet TAKE tablet 1 TABLET BY 1 TABLET BY TAKE 1 MOUTH TWICE MOUTH TWICE TABLET BY DAILY WITH DAILY WITH MOUTH MEALS MEALS TWICE DAILY WITH MEALS olmesartan olmesartan No olmesartan [facility] 40 mg 40 mg 40 mg Family tablet TAKE tablet TAKE tablet Practic 1 TABLET BY 1 TABLET BY TAKE 1 e MOUTH EVERY MOUTH EVERY TABLET BY DAY DAY MOUTH EVERY DAY omeprazole omeprazole No omeprazole [facility] 40 mg 40 mg 40 mg [...] ONCE WEEKLY ONCE WEEKLY rosuvastati [facility]suvastati No [facility] mg n 10 mg in 10 mg Famil y tablet TAKE tablet TAKE tablet Practic 1 TABLET BY 1 TABLET BY TAKE 1 e MOUTH EVERY MOUTH EVERY TABLET BY DAY IN THE DAY IN THE MOUTH EVENING EVENING EVERY DAY IN THE EVENING tadalafil tadalafil No tadalafil [facility] 20 mg 20 mg 20 mg Family tablet TAKE tablet TAKE tablet Practic 1 TABLET BY 1 TABLET BY TAKE 1 e MOUTH EVERY MOUTH EVERY TABLET BY DAY DAY MOUTH NEEDED NEEDED EVERY DAY NEEDED [facility]amsulosin [facility] 0.4 mg 0.4 mg 0.4 mg Family capsule capsule capsule Practi c TAKE 1 TAKE 1 TAKE 1 e CAPSULE BY CAPSULE BY CAPSULE BY MOUTH EVERY MOUTH EVERY MOUTH DAY DAY EVERY DAY testosteron testosteron No [facility] e 1.62 % e 1.62 % ne [...] AREA EVERY MORNING venlafaxine venlafaxine No venlafaxin [facility] ER 150 mg ER 150 mg [...] Source Name Name pneumococcal pneumococcal 2020-01-19 Completed [facility] Fa teodora polysaccharide PPV23 polysaccharide PPV23 18:11:00 Practice Influenza, Influenza, 2017-04-01 Completed [facility] injectable, MDCK, injectable, MDCK, 13:27:00 Practice quadrivalent quadrivalent diphtheria/pertussis, 2017-02-24 Completed [facility] orial acel/tetanus adult 02:55:00 Gui [place] Vital Signs Vital Name Observation Time Observation Value Comments Source BP Diastolic 2021-10-23 00:00:00 95 mm[Hg] [facility] Practice Height 2021-10-23 00:00:00 68 [in_i] [facility] Practice BMI (Body Mass Index) 2021-10-23 00:00:00 29.5 kg/m2 [facility] BP Systolic 2021-10-23 00:00:00 162 mm[Hg] [facility] Body Weight 2021-10-23 00:00:00 194 [lb_av] [facility] BP Diastolic 2021-03-01 00:00:00 98 mm[Hg] [facility] Height 2021-03-01 00:00:00 68 [in_i] [facility] Practice BMI (Body Mass Index) 2021-03-01 00:00:00 28.1 kg/m2 [facility] BP Systolic 2021-03-01 00:00:00 155 mm[Hg] [facility] Practice Body Weight 2021-03-01 00:00:00 185 [lb_av] [facility] BP Diastolic 2020-07-03 00:00:00 89 mm[Hg] [facility] Height 2020-07-03 00:00:00 68 [in_i] [facility] Practice BMI (Body Mass Index) 2020-07-03 00:00:00 29 kg/m2 [facility] BP Systolic 2020-07-03 00:00:00 137 mm[Hg] [facility] Practice Body Weight 2020-07-03 00:00:00 191 [lb_av] [facility] BP Diastolic 2020-01-19 00:00:00 94 mm[Hg] [facility] Height 2020-01-19 00:00:00 68 [in_i] [facility] BMI (Body Mass Index) 2020-01-19 00:00:00 29.3 kg/m2 [facility] BP Systolic 2020-01-19 00:00:00 150 mm[Hg] [facility] Body Weight 2020-01-19 00:00:00 193 [lb_av] [facility] Systolic (mm Hg) 2017-02-24 03:17:00 Carlos rial [place] Diastolic (mm Hg) 2017-02-24 03:17:00 Mem orial [facility] Respitory Rate 2017-02-24 03:17:00 Memori al [facility] Heart Rate 2017-02-24 03:17:00 [facility] Temperature Oral (F) 2017-02-23 22:57:00 98.5 F [facility] Heart Rate 2017-02-23 22:57:00 [facility] [place] Respitory Rate 2017-02-23 22:57:00 Memori al [place] Systolic (mm Hg) 2017-02-23 22:57:00 Carlos rial [place] Diastolic (mm Hg) 2017-02-23 22:57:00 Mem orial [facility] Weight 2017-02-23 22:57:00 [facility] [place] Height 2017-02-23 22:57:00 172.72 cm [facility] [place] BMI Calculated 2017-02-23 22:57:00 Memori al [place] Procedures Procedure Date / Time Performed Performing Clinician [facility] e Hernia Repair 2018-07-14 00:00:00 [facility] Lynda neves Practice Orthopedic Surgery 2018-07-14 00:00:00 [facility] surekhay Practice Colonoscopy 2017-07-14 00:00:00 [facility] ly Practice [facility] Plan of Care Planned Activity Planned Date Details Comments Source Diagnostic Test Pending 2021-10-23 HbA1c (hemoglobin [facility] 00:00:00 A1c), blood [code Practice = HbA1c (hemoglobin A1c), blood] Diagnostic Test Pending 2021-10-23 lipid panel, Vill age Family 00:00:00 serum [code = Practice lipid panel, serum] Diagnostic Test Pending 2021-10-23 CMP, serum or Marcial shira Family 00:00:00 plasma [code = Practice CMP, serum or plasma] Diagnostic Test Pending 2021-10-23 CBC w/ auto diff [facility] Family 00:00:00 [code = CBC w/ Practice auto diff] Diagnostic Test Pending 2021-10-23 testosterone, Marcial silva Family 00:00:00 total, serum Practice [code = testosterone, total, serum] Future Appointment 2022-01-22 Harika Torres [facility] age Family 00:00:00 [id number] [facility]; [address], [place] [address] Instructions [facility] Practice Encounters Start End Encounter Admission Attending Care Care Encounter Source Date/Time Date/Time Type Type Clinicians Facility Department ID 2021-10-23 2021-10-23 Outpatient Zuñiga-Gor_M VFP VFP [id number] [facility] 11:46:00 11:46:00 [id number] Family Practic e 2021-10-23 2021-10-23 Outpatient Zuñiga-Teofilo_M_ VFP VFP [id number] [facility] 11:46:00 11:46:00 BELÉN [id number] Family Practic e 2021-10-23 2021-10-23 Harika O VFP [place] - [id number] [facility] 00:00:00 00:00:00 Brian [facility] Lynda neves MD: [id number] Medical - Prac tic Shadow VM_NASIR_Maxx e [facility], [address], [place] [address] , Ph. 2021-10-18 2021-10-18 Outpatient Zuñiga-Gor_M VFP VFP [id number] [facility] 01:59:00 01:59:00 [id number] Family Practic e 2021-10-18 2021-10-18 Outpatient Zuñiga-Gor_M VFP VFP [id number] [facility] 01:59:00 01:59:00 [id number] Family Practic e 2021-07-25 2021-07-25 Outpatient Zuñiga-Gor_M VFP VFP [id number] [facility] 12:39:00 12:39:00 Family Practic e 2021-06-03 2021-06-03 Outpatient Zuñiga-Gor_M VFP VFP [id number] [facility] 02:41:00 02:41:00 [id number] Family Practic e 2021-05-252021-05-25 Outpatient Zuñiga-Gor_M VFP VFP [id number] [facility] 01:44:00 01:44:00 [id number] Family Practic e 2021-04-20 2021-04-20 Outpatient Zuñiga-Gor_M VFP VFP [id number] [facility] 02:28:00 02:28:00 [id number] Family Practic e 2021-04-03 2021-04-03 Outpatient SIFF, [facility] [id number] [place] 00:00:00 00:00:[address] 2021-04-03 2021-04-03 Outpatient SIFF, [facility] [id number] [place] 00:00:00 00:00:[address] 2021-03-17 2021-03-17 Outpatient Zuñiga-Gor_M VFP VFP [id number] [facility] 01:02:00 01:02:00 [id number] Family Practic e 2021-03-03 2021-03-03 Outpatient Zuñiga-Gor_M_ VFP VFP [id number] [facility] 10:45:00 10:45:00 WAG [id number] Family Practic e 2021-03-03 2021-03-03 Outpatient Zuñiga-Gor_M VFP VFP [id number] [facility] 10:45:00 10:45:00 [id number] Family Practic e 2021-03-01 2021-03-01 Outpatient Zuñiga-Gor_M VFP VFP [id number] [facility] 05:14:00 05:14:00 [id number] Family Practic e 2021-03-01 2021-03-01 Harika O VFP [place] - [id number] [facility] 00:00:00 00:00:00 Brian [facility] Lynda neves MD: [id number] Medical - Prac tic Shadow VM_HOU_Shad [facility] [place] [facility], [address], [place] [address] , Ph. 2020-10-18 2020-10-18 Outpatient SIFF, [facility] [id number] [place] 00:00:00 00:00:[address] 2020-10-18 2020-10-18 Outpatient SIFF, [facility] [id number] [place] 00:00:00 00:00:[address] 2020-09-15 2020-09-15 Outpatient Zuñiga-Gor_M_ VFP VFP [id number] [facility] 11:00:00 11:00:00 [facility] [id number] Family Practic e 2020-09-15 2020-09-15 Outpatient Zuñiga-Gor_M_ VFP VFP [id number] [facility] 11:00:00 11:00:00 [facility] [id number] Family Practic e 2020-08-27 2020-08-27 Outpatient Zuñiga-Gor_M_ VFP VFP [id number] [facility] 01:03:00 01:03:00 VAMSHI [id number] Family Practic e 2020-08-27 2020-08-27 Outpatient Zuñiga-Gor_M_ VFP VFP [id number] [facility] 01:03:00 01:03:00 [facility] [id number] Family Practic e 2020-08-27 2020-08-27 Outpatient Zuñiga-Gor_M VFP VFP [id number] [facility] 01:03:00 01:03:00 [id number] Family Practic e 2020-08-27 2020-08-27 Outpatient Zuñiga-Gor_M VFP VFP [id number] [facility] 01:03:00 01:03:00 [id number] Family Practic e 2020-07-23 2020-07-23 Outpatient Zuñiga-Gor_M_ VFP VFP [id number] [facility] 01:01:00 01:01:00 VAMSHI [id number] Family Practic e 2020-07-04 2020-07-04 Outpatient Zuñiga-Gor_M_ VFP VFP [id number] [facility] 01:12:00 01:12:00 VAMSHI [id number] Family Practic e 2020-07-03 2020-07-03 Outpatient Zuñiga-Gor_M_ VFP VFP [id number] [facility] 05:09:00 05:09:00 VAMSHI [id number] Family Practic e 2020-07-03 2020-07-03 Harika O VFP [place] - [id number] [facility] 00:00:00 00:00:00 Brian, [facility] Jacki edinson ANNA: [id number] Medical - Pract [facility] [place] [address], ([facility]) [place] [address] , Ph. 2020-06-30 2020-06-30 Outpatient Zuñiga-Gor_M_ VFP VFP [id number] [facility] 04:52:00 04:52:00 YODIT [id number] Family Practic e 2020-02-04 2020-02-04 Outpatient Zuñiga-Gor_M_ VFP VFP [id number] [facility] 12:59:00 12:59:00 YODIT [id number] Family Practic e 2020-02-04 2020-02-04 Outpatient Zuñiga-Gor_M VFP VFP [id number] [facility] 12:59:00 12:59:00 [id number] Family Practic e 2020-01-24 2020-01-24 Outpatient Zuñiga-Gor_M VFP VFP [id number] [facility] 11:36:00 11:36:00 [id number] Family Practic e 2020-01-19 2020-01-19 Outpatient Zuñiga-Gor_M_ VFP VFP [id number] [facility] 05:11:00 05:11:00 YODIT [id number] Family Practic e 2020-01-19 2020-01-19 Harika O VFP [place] - [id number] [facility] 00:00:00 00:00:00 Brian, [facility] Fam edinson MD: [id number] Medical - Pract [facility], [place] [address], ([facility]) [place] [address] , Ph. 2020-01-18 2020-01-18 Outpatient Zuñiga-Gor_M_ VFP VFP [id number] [facility] 11:51:00 11:51:00 YODIT [id number] Family Practic e 2020-01-05 2020-01-05 Outpatient Zuñiga-Gor_M VFP VFP [id number] [facility] 05:34:00 05:34:00 [id number] Family Practic e 2020-01-05 2020-01-05 Outpatient Zuñiga-Gor_M VFP VFP [id number] [facility] 05:34:00 05:34:00 [id number] Family Practic e 2020-01-05 2020-01-05 Outpatient Zuñiga-Gor_M VFP VFP [id number] [facility] 05:34:00 05:34:00 [id number] Family Practic e 2019-12-29 2019-12-29 Outpatient Zuñiga-Gor_M_ VFP VFP [id number] [facility] 09:56:00 09:56:00 YODIT [id number] Family Practic e 2019-05-20 2019-05-20 Outpatient Yogesh-Teofilo_Mana VFP VFP [id number] [facility] 01:17:00 01:17:00 [id number] Family Practic e 2019-05-20 2019-05-20 Outpatient Yogesh-Teofilo_M VFP VFP [id number] [facility] 01:17:00 01:17:00 [id number] Family Practic e 2019-05-20 2019-05-20 Outpatient Yogesh-Teofilo_M VFP VFP [id number] [facility] 01:17:00 01:17:00 [id number] Family Practic e 2017-02-23 2017-02-24 Emergency [facility] [id number] Memoria 22:53:00 03:20:00 jordan Hawthorne 01 l [facility] 2016-07-31 2016-07-31 [facility] [id number] [facility] 07:45:00 07:45:00 Geraldo Hawthorne Results This patient has no known results.
--- NOTE | 2021-11-30 09:31 | ER ---
Nurse's Notes [facility] Name: Kailash Davis Age: 61 yrs Sex: Male : 1960 Arrival Date: 11/30/2021 Time: 09:00 Bed Waiting Private MD: Diagnosis: Laceration without foreign body of scalp, subsequent encounter Presentation: 11/30 09:28 Chief complaint: Patient states: he is here to get nancy removed that he had received ap3 on his recent visit approx 5 days ago. Coronavirus screen: At this time, the client does not indicate any symptoms associated with coronavirus-19. Ebola Screen: No symptoms or risks identified at this time. Initial Sepsis Screen: Does the patient meet any 2 criteria? No. Patient's initial sepsis screen is negative. Does the patient have a suspected source of infection? No. Patient's initial sepsis screen is negative. Risk Assessment: Do you want to hurt yourself or someone else? Patient reports no desire to harm self or others. Onset of symptoms was November 25, 2021. 09:28 Method Of Arrival: Ambulatory ap3 09:28 Acuity: JAIME 5 ap3 Triage Assessment: 09:28 General: Appears in no apparent distress. comfortable, Behavior is calm, cooperative, ap3 appropriate for age. Pain: Denies pain. Neuro: Level of Consciousness is awake, alert, obeys commands, Oriented to person, place, time, situation, Appropriate for age. Derm: Wound noted left frontal area. Historical: - Allergies: 09:28 PENICILLINS; ap3 - PMHx: 09:28 depressive disorder; enlarged prostate; GERD; Hypertensive disorder; Type 2 Diabetes ap3 Mellitus; - Immunization history:: Adult Immunizations unknown. - Social history:: Smoking status: unknown. Screenin:29 Abuse screen: Denies threats or abuse. Nutritional screening: No deficits noted. ap3 Tuberculosis screening: No symptoms or risk factors identified. Fall Risk None identified. Vital Signs: 09:28 Pain 0/10; ap3 ED Course: 09:00 Patient arrived in ED. mr 09:24 Jad Dillon NP is PHCP. pm1 09:24 Dennis Sharif MD is Attending Physician. pm1 09:28 Triage completed. ap3 09:29 Arm band placed on right wrist. ap3 09:29 No provider procedures requiring assistance completed. Patient did not have IV access ap3 during this emergency room visit. 09:30 Patient has correct armband on for positive identification. ap3 Administered Medications: No medications were administered Medication: : VIS not applicable for this client. ap3 Outcome: : Discharge ordered by MD. pm1 : Discharged to home ap3 : Condition: good :31 Discharge instructions given to patient, Instructed on discharge instructions, follow up and referral plans. Demonstrated understanding of instructions, follow-up care. :31 Patient left the ED. ap3 Signatures: Lynda Oseguera mr DillonJad, CARPENTER'S ASSISTANT CARPENTER'S ASSISTANT pm1 Juliann Randolph RN RN ap3
--- NOTE | 2021-11-30 09:31 | EDPHYS ---
Physician Documentation [facility] Name: Kailash Davis Age: 61 yrs Sex: Male : 1960 Arrival Date: 11/30/2021 Time: 09:00 Bed Waiting Private MD: ED Physician Dennis Sharif HPI: 11/30 09:30 This 61 yrs old Male presents to ER via Ambulatory with complaints of Staple Removal. pm1 09:30 The patient has nancy on the left temporal area. Previous treatment: The patient was pm1 initially treated 6 day(s) ago, the care was rendered at [facility]. The patient has been recently seen at the [facility] Emergency Department, last week, fall injury resulting in staple repair. Patient presenting to the ER for complaints of staple removal. Historical: - Allergies: 09:28 PENICILLINS; ap3 - PMHx: 09:28 depressive disorder; enlarged prostate; GERD; Hypertensive disorder; Type 2 Diabetes ap3 Mellitus; - Immunization history:: Adult Immunizations unknown. - Social history:: Smoking status: unknown. ROS: 09:30 Constitutional: Negative for fever, chills, and weight loss, Cardiovascular: Negative pm1 for chest pain, palpitations, and edema, Respiratory: Negative for shortness of breath, cough, wheezing, and pleuritic chest pain, MS/Extremity: Negative for injury and deformity. 09:30 Skin: Negative for injury, rash, and discoloration, Neuro: Negative for headache, weakness, numbness, tingling, and seizure. 09:30 All other systems are negative. Exam: 09:30 Constitutional: This is a well developed, well nourished patient who is awake, alert, pm1 and in no acute distress. Head/Face: Normocephalic, atraumatic. 09:30 Cardiovascular: Exam negative for acute changes, Rate: normal, Rhythm: regular, Pulses: no pulse deficits are appreciated. 09:30 Respiratory: Exam negative for acute changes, respiratory distress, shortness of breath. 09:30 Skin: Wound recheck: Staple laceration closure: the wound is healing well, the edges are well approximated, no evidence of dehiscence, no drainage, no erythema, no swelling. 09:30 Neuro: Exam negative for acute changes, Orientation: is normal, Mentation: is normal, Motor: is normal, moves all fours. Vital Signs: 09:28 Pain 0/10; ap3 MDM: 09:28 Data reviewed: vital signs. Counseling: I had a detailed discussion with the patient pm1 and/or guardian regarding: the historical points, exam findings, and any diagnostic results supporting the discharge/admit diagnosis, the need for outpatient follow up, to return to the emergency department if symptoms worsen or persist or if there are any questions or concerns that arise at home, Too soon for staple removal, recommended patient to come back in 4 days for reevaluation and staple removal if appropriate . 09:30 Patient medically screened. pm1 09:30 ED course: Instructed the patient to return in 4-5 days for reevaluation of readiness pm1 for staple removal. Administered Medications: No medications were administered Disposition Summary: 11/30/21 09:30 Discharge Ordered Location: Home pm1 Problem: new pm1 Symptoms: are unchanged pm1 Condition: Stable pm1 Diagnosis - Laceration without foreign body of scalp, subsequent encounter pm1 Followup: pm1 - With: Emergency Department - When: As needed - Reason: Worsening of condition Followup: pm1 - With: Private Physician - When: 2 - 3 days - Reason: Recheck today's complaints, Continuance of care, Re-evaluation by your physician Discharge Instructions: - Discharge Summary Sheet pm1 - Laceration Care, Adult pm1 Forms: - Medication Reconciliation Form pm1 - Thank You Letter pm1 - Antibiotic Education pm1 - Prescription Opioid Use pm1 Signatures: Jad Dillon NP ANSWERING SERVICE TELEPHONE OPERATOR pm1 Juliann Randolph RN RN ap3
== END 2021-11-30 09:31 | disposition home or self-care (01) ==
LOC: ER 08:58
DX: S01.01XD Laceration without foreign body of scalp, subsequent encounter (principal)
CPT/HCPCS: 99281

== ENCOUNTER 2021-12-05 09:46 | Emergency (ER) | payer BC ==
--- OUTSIDE RECORDS SUMMARY | 2021-12-05 09:50 | XMS REPORT | Continuity of Care Document ---
:1960 Author Organization [facility] t Address [address] [place] [address] Care Team Providers Name Role Phone Lit Attending Clinician Unavailable Savage Attending Clinician Unavailable SIFNatalia Attending Clinician Unavailable Lit Admitting Clinician Unavailable Savage Admitting Clinician Unavailable Payers Payer Name Policy Type Policy Number Effective Date Expiration Date S ruiz [place] [id number] 2004 00:00:00 Problems Condition Condition Condition Status Onset Resolution Last Treating Co mments Source Name Details Category Date Date Treatment Clinician Date Elevated Elevated Problem Active [facility] Liver 709 Family enzymes Enzymes 00:00: Practic level Level 00 e Alcohol Alcohol Problem Active [facility] intake Intake 7-08 Family above above 00:00: Practic recommende Recommende 00 e d sensible d Sensible limits Limits Type 2 Type 2 Problem Active [facility] diabetes Diabetes 7-03 Family mellitus Mellitus 00:00: Practi c 00 e Mixed Mixed Problem Active [facility] hyperlipid Hyperlipid 9 [facility] emia emia 00:00: Practic 00 e LEG INJURY Diagnosis Active 2017-04-21 Memoria 8- 13:24:00 l LEG 00:00: [place] INJURY 00 Active 02/23/2017 [facility] Hypogonadi Hypogonadi Problem Active [facility] sm 11-11 Family 00:00: Practic 00 e Anxiety Anxiety Problem Active [facility] 5 Family 00:00: Practic 00 e Essential Essential Problem Active Marcial shira hypertensi Hypertensi 5- teodora on on 00:00: Practic 00 e Primary Primary Problem Active [facility] erectile Erectile 5-01 Family dysfunctio Dysfunctio 00:00: Pr actic n n 00 e Hypertensi Problem Active 2017-02-26 M emoria ve 00:45:40 l disorder, [place] systemic Hypertensi arterial ve (disorder) disorder, systemic arterial (disorder) Active Problem 02/26/2017 [facility] History of Past Illness Condition Condition Condition Status Onset Resolution Last Treating Co mments Source Name Details Category Date Date Treatment Clinician Date Puncture Problem 2017-02-26 2017-02-26 Memoria wound 02-23 00:45:40 00:45:40 l without Puncture 05:00: Rocio nn foreign wound 00 body, without unspecifie foreign d foot, body, initial unspecifie encounter d foot, initial encounter 02/23/2017 02/26/2017 [facility] Allergies, Adverse Reactions, Alerts Allergy Allergy Status Severity Reaction(s) Onset Inactive Treating Comm ents Source Name Type Date Date Clinician penicill penicill Active Memori a ins<sup> ins<sup> l 1</sup> 1</sup> Christoph PENICILL Allergy Active [facility] INS to Family substanc Practic e e Social History Social Habit Start Date Stop Date Quantity Comments Source Social History 2016-02-28 2016-02-28 [facility] jermain 23:53:02 23:53:02 Smoking Status Start Date Stop Date Source Never Smoker [facility] Family P ractice Medications Ordered Filled Start Stop Current Ordering Indication Dosage Frequency Signature Comments Components Source Medication Medication Date Date Medication? Clinician (SIG) Name Name Ibuprofen No Notes: Memori a -14 (Same as: l 02:08: Motrin) Christoph 00 "Do Not Crush" Take with food. [...] mg = 1 Memoria 300 mg oral 02-24 cap, PO, l capsule 02:02: Q6H, X 10 Rocio nn day, # 40 cap, 0 Refill(s) Acetaminoph No Notes: Do M emoria en 325 MG / 02-24 not exceed l Hydrocodone 00:12: 4gm/day of [place] Bitartrate 00 acetaminop 10 MG Oral hen. Tablet (Same as: [Calpine Calpine 10/325] 325/10) Acetaminoph No Notes: Carlos unique en 325 MG / 02-23 Same as l Hydrocodone 22:57: Calpine Rocio nn Bitartrate 00 325-7.5mg 7.5 MG Oral Do not Tablet exceed [Calpine 4gm/day of 7.5/325] acetaminop hen. amlodipine amlodipine No amlodipine [facility] 10 mg 10 mg 10 mg [...] DAY EVERY DAY glipizide glipizide No glipizide [facility] 2.5 2.5 2.5 Family mg-metformi mg-metformi mg-metform Practic n 500 mg n 500 mg in 500 mg e tablet TAKE tablet TAKE tablet 1 TABLET BY 1 TABLET BY TAKE 1 MOUTH TWICE MOUTH TWICE TABLET BY DAILY WITH DAILY WITH MOUTH MEALS MEALS TWICE DAILY WITH MEALS olmesartan olmesartan No olmesartan [facility] 40 mg 40 mg 40 mg Family tablet TAKE tablet TAKE tablet Practic 1 TABLET BY 1 TABLET BY TAKE 1 e MOUTH EVERY MOUTH EVERY TABLET BY DAY DAY MOUTH EVERY DAY omeprazole omeprazole No omeprazole [facility] 40 mg 40 mg 40 mg [...] ONCE WEEKLY ONCE WEEKLY rosuvastati [facility]suvastati [facility] mg n 10 mg in 10 mg Famil y tablet TAKE tablet TAKE tablet Practic 1 TABLET BY 1 TABLET BY TAKE 1 e MOUTH EVERY MOUTH EVERY TABLET BY DAY IN THE DAY IN THE MOUTH EVENING EVENING EVERY DAY IN THE EVENING tadalafil tadalafil No tadalafil [facility] 20 mg 20 mg 20 mg Family tablet TAKE tablet TAKE tablet Practic 1 TABLET BY 1 TABLET BY TAKE 1 e MOUTH EVERY MOUTH EVERY TABLET BY DAY DAY MOUTH NEEDED NEEDED EVERY DAY NEEDED tamsulosin tamsulosin No tamsulosin [facility] 0.4 mg 0.4 mg 0.4 mg Family capsule capsule capsule Practi c TAKE 1 TAKE 1 TAKE 1 e CAPSULE BY CAPSULE BY CAPSULE BY MOUTH EVERY MOUTH EVERY MOUTH DAY DAY EVERY DAY testosteron testosteron No [facility] e 1.62 % e 1.62 % ne [...] AREA EVERY MORNING venlafaxine venlafaxine No venlafaxin [facility] ER 150 mg ER 150 mg [...] Source Name Name pneumococcal pneumococcal 2020-01-19 Completed [facility] Fa teodora polysaccharide PPV23 polysaccharide PPV23 18:11:00 Practice Influenza, Influenza, 2017-04-01 Completed [facility] injectable, MDCK, injectable, MDCK, 13:27:00 Practice quadrivalent quadrivalent diphtheria/pertussis, 2017-02-24 Completed [facility] orial acel/tetanus adult 02:55:00 Gui paniagua Vital Signs Vital Name Observation Time Observation Value Comments Source BP Diastolic 2021-10-23 00:00:00 95 mm[Hg] [facility] Height 2021-10-23 00:00:00 68 [in_i] [facility] Practice BMI (Body Mass Index) 2021-10-23 00:00:00 29.5 kg/m2 [facility] BP Systolic 2021-10-23 00:00:00 162 mm[Hg] [facility] Body Weight 2021-10-23 00:00:00 194 [lb_av] [facility] BP Diastolic 2021-03-01 00:00:00 98 mm[Hg] [facility] Height 2021-03-01 00:00:00 68 [in_i] [facility] BMI (Body Mass Index) 2021-03-01 00:00:00 28.1 kg/m2 [facility] BP Systolic 2021-03-01 00:00:00 155 mm[Hg] [facility] Practice Body Weight 2021-03-01 00:00:00 185 [lb_av] [facility] BP Diastolic 2020-07-03 00:00:00 89 mm[Hg] [facility] Height 2020-07-03 00:00:00 68 [in_i] [facility] Practice BMI (Body Mass Index) 2020-07-03 00:00:00 29 kg/m2 [facility] BP Systolic 2020-07-03 00:00:00 137 mm[Hg] [facility] Practice Body Weight 2020-07-03 00:00:00 191 [lb_av] [place] BP Diastolic 2020-01-19 00:00:00 94 mm[Hg] [place] Height 2020-01-19 00:00:00 68 [in_i] [place] BMI (Body Mass Index) 2020-01-19 00:00:00 29.3 kg/m2 [place] BP Systolic 2020-01-19 00:00:00 150 mm[Hg] [place] Body Weight 2020-01-19 00:00:00 193 [lb_av] [place] Systolic (mm Hg) 2017-02-24 03:17:00 Carlos rial Christoph Diastolic (mm Hg) 2017-02-24 03:17:00 Mem orial Christoph Respitory Rate 2017-02-24 03:17:00 Memori al Christoph Heart Rate 2017-02-24 03:17:00 [facility] [place] Temperature Oral (F) 2017-02-23 22:57:00 98.5 F [facility] [place] Heart Rate 2017-02-23 22:57:00 [facility] Respitory Rate 2017-02-23 22:57:00 Memori al Christoph Systolic (mm Hg) 2017-02-23 22:57:00 Carlos rial Christoph Diastolic (mm Hg) 2017-02-23 22:57:00 Mem orial Christoph Weight 2017-02-23 22:57:00 [facility] [place] Height 2017-02-23 22:57:00 172.72 cm [facility] Christoph BMI Calculated 2017-02-23 22:57:00 Memori al Christoph Procedures Procedure Date / Time Performed Performing Clinician [facility] e Hernia Repair 2018-07-14 00:00:00 [facility] Lynda ly Practice Orthopedic Surgery 2018-07-14 00:00:00 [facility] amily Practice Colonoscopy 2017-07-14 00:00:00 [facility] ly Practice Extraction of wisdom [facility] tooth Plan of Care Planned Activity Planned Date Details Comments Source Diagnostic Test Pending 2021-10-23 HbA1c (hemoglobin [facility] 00:00:00 A1c), blood [code Practice = HbA1c (hemoglobin A1c), blood] Diagnostic Test Pending 2021-10-23 lipid panel, Vill age Family 00:00:00 serum [code = Practice lipid panel, serum] Diagnostic Test Pending 2021-10-23 CMP, serum or Marcial shira Family 00:00:00 plasma [code = Practice CMP, serum or plasma] Diagnostic Test Pending 2021-10-23 CBC w/ auto diff [facility] 00:00:00 [code = CBC w/ Practice auto diff] Diagnostic Test Pending 2021-10-23 testosterone, Marcial silva Family 00:00:00 total, serum Practice [code = testosterone, total, serum] Future Appointment 2022-01-22 Harika Torres [facility] jose Family 00:00:00 [id number] [facility]; [address], [place] [address] Instructions [facility] Practice Encounters Start End Encounter Admission Attending Care Care Encounter Source Date/Time Date/Time Type Type Clinicians Facility Department ID 2021-10-23 2021-10-23 Outpatient Yogesh-Teofilo_M VFP VFP [id number] [facility] 11:46:00 11:46:00 [id number] Family Practic e 2021-10-23 2021-10-23 Outpatient Yogesh-Teofilo_M_ VFP VFP [id number] [facility] 11:46:00 11:46:00 BELÉN [id number] Family Practic e 2021-10-23 2021-10-23 Harika O VFP [place] - [id number] [facility] 00:00:00 00:00:00 Brian [facility] Lynda neves MD: [id number] Medical - Prac tic Shadow VM_NASIR_Maxx e [facility], [address], [place] [address] , Ph. 2021-10-18 2021-10-18 Outpatient Yogesh-Teofilo_M VFP VFP [id number] [facility] 01:59:00 01:59:00 [id number] Family Practic e 2021-10-18 2021-10-18 Outpatient Zuñiga-Teofilo_M VFP VFP [id number] [facility] 01:59:00 01:59:00 [id number] Family Practic e 2021-07-25 2021-07-25 Outpatient Zuñiga-Gor_M VFP VFP [id number] [facility] 12:39:00 12:39:00 Family Practic e 2021-06-03 2021-06-03 Outpatient Zuñiga-Gor_M VFP VFP [id number] [facility] 02:41:00 02:41:00 [id number] Family Practic e 2021-05-25 2021-05-25 Outpatient Zuñiga-Gor_M VFP VFP [id number] Village 01:44:00 01:44:00 [id number] Family Practic e 2021-04-20 2021-04-20 Outpatient Zuñiga-Gor_M VFP VFP [id number] Village 02:28:00 02:28:00 [id number] Family Practic e 2021-04-03 2021-04-03 Outpatient SIFF, [facility] [id number] [place] 00:00:00 00:00:[address] 2021-04-03 2021-04-03 Outpatient SIFF, [facility] [id number] [place] 00:00:00 00:00:[address] 2021-03-17 2021-03-17 Outpatient Zuñiga-Gor_M VFP VFP [id number] [facility] 01:02:00 01:02:00 [id number] Family Practic e 2021-03-03 2021-03-03 Outpatient Zuñiga-Gor_M_ VFP VFP [id number] [facility] 10:45:00 10:45:00 WAG [id number] Family Practic e 2021-03-03 2021-03-03 Outpatient Zuñiga-Gor_M VFP VFP [id number] [facility] 10:45:00 10:45:00 [id number] Family Practic e 2021-03-01 2021-03-01 Outpatient Zuñiga-Gor_M VFP VFP [id number] [facility] 05:14:00 05:14:00 [id number] Family Practic e 2021-03-01 2021-03-01 Harika O VFP [place] - [id number] [facility] 00:00:00 00:00:00 Brian [facility] Lynda neves MD: [id number] Medical - Prac tic Shadow VM_HOU_Chid e [place] [facility], [address], [place] [address] , Ph. 2020-10-18 2020-10-18 Outpatient SIFF, [facility] [id number] [place] 00:00:00 00:00:[address] 2020-10-18 2020-10-18 Outpatient SIFF, [facility] [id number] [place] 00:00:00 00:00:[address] 2020-09-15 2020-09-15 Outpatient Zuñiga-Gor_M_ VFP VFP [id number] [place] 11:00:00 11:00:00 [facility] [id number] Family Practic e 2020-09-15 2020-09-15 Outpatient Zuñiga-Gor_M_ VFP VFP [id number] [place] 11:00:00 11:00:00 VAMSHI [id number] Family Practic e 2020-08-27 2020-08-27 Outpatient Zuñiga-Gor_M_ VFP VFP [id number] [place] 01:03:00 01:03:00 VAMSHI [id number] Family Practic e 2020-08-27 2020-08-27 Outpatient Zuñiga-Gor_M_ VFP VFP [id number] [place] 01:03:00 01:03:00 VAMSHI [id number] Family Practic e 2020-08-27 2020-08-27 Outpatient Zuñiga-Gor_M VFP VFP [id number] [facility] 01:03:00 01:03:00 [id number] Family Practic e 2020-08-27 2020-08-27 Outpatient Zuñiga-Gor_M VFP VFP [id number] [place] 01:03:00 01:03:00 [id number] Family Practic e 2020-07-23 2020-07-23 Outpatient Zuñiga-Gor_M_ VFP VFP [id number] [place] 01:01:00 01:01:00 VAMSHI [id number] Family Practic e 2020-07-04 2020-07-04 Outpatient Zuñiga-Gor_M_ VFP VFP [id number] [place] 01:12:00 01:12:00 VAMSHI [id number] Family Practic e 2020-07-03 2020-07-03 Outpatient Zuñiga-Gor_M_ VFP VFP [id number] [place] 05:09:00 05:09:00 VAMSHI [id number] Family Practic e 2020-07-03 2020-07-03 Harika O VFP [place] - [id number] [facility] 00:00:00 00:00:00 Brian, [facility] Jacki edinson ANNA: [id number] Medical - Pract [facility], [place] [address], ([facility]) [place] [address] , Ph. 2020-06-30 2020-06-30 Outpatient Zuñiga-Gor_M_ VFP VFP [id number] [place] 04:52:00 04:52:00 YODIT 22411 Family Practic e 2020-02-04 2020-02-04 Outpatient Zuñiga-Gor_M_ VFP VFP [id number] [place] 12:59:00 12:59:00 YODIT [id number] Family Practic e 2020-02-04 2020-02-04 Outpatient Zuñiga-Gor_M VFP VFP [id number] [place] 12:59:00 12:59:00 [id number] Family Practic e 2020-01-24 2020-01-24 Outpatient Zuñiga-Gor_M VFP VFP [id number] [place] 11:36:00 11:36:00 [id number] Family Practic e 2020-01-19 2020-01-19 Outpatient Zuñiga-Gor_M_ VFP VFP [id number] [place] 05:11:00 05:11:00 YODIT 16149 Family Practic e 2020-01-19 2020-01-19 Harika O VFP [place] - [id number] [facility] 00:00:00 00:00:[facility] MD: [id number] Medical - Pract [place] [address], ([facility]) [place] [address] , Ph. 2020-01-18 2020-01-18 Outpatient Zuñiga-Gor_M_ VFP VFP [id number] [place] 11:51:00 11:51:00 YODIT [id number] Family Practic e 2020-01-05 2020-01-05 Outpatient Zuñiga-Gor_M VFP VFP [id number] [place] 05:34:00 05:34:00 [id number] Family Practic e 2020-01-05 2020-01-05 Outpatient Zuñiga-Gor_M VFP VFP [id number] [facility] 05:34:00 05:34:00 [id number] Family Practic e 2020-01-05 2020-01-05 Outpatient Zuñiga-Gor_M VFP VFP [id number] [place] 05:34:00 05:34:00 [id number] Family Practic e 2019-12-29 2019-12-29 Outpatient Zuñiga-Gor_M_ VFP VFP [id number] [place] 09:56:00 09:56:00 YODIT [id number] Family Practic e 2019-05-20 2019-05-20 Outpatient Zuñiga-Teofilo_M VFP VFP [id number] [facility] 01:17:00 01:17:00 [id number] Family Practic e 2019-05-20 2019-05-20 Outpatient Zuñiga-Gor_M VFP VFP [id number] [facility] 01:17:00 01:17:00 [id number] Family Practic e 2019-05-20 2019-05-20 Outpatient Zuñiga-Teofilo_M VFP VFP [id number] [facility] 01:17:00 01:17:00 [id number] Family Practic e 2017-02-23 2017-02-24 Emergency [facility] [id number] Memoria 22:53:00 03:20:00 jordan Chow l [facility] 2016-07-31 2016-07-31 Outpatient IE IE [id number] Memoria 07:45:00 07:45:00 Geraldo Lares This patient has no known results.
--- NOTE | 2021-12-05 10:21 | EDPHYS ---
Physician Documentation [facility] Name: Kailash Davis Age: 61 yrs Sex: Male : 1960 Arrival Date: 12/05/2021 Time: 09:48 Bed 9 Private MD: ED Physician Burke Ashley HPI: 12/05 10:18 This 61 yrs old Male presents to ER via Unassigned with complaints of Staple Removal. jmm 10:18 The patient has nancy on the scalp. Sutures/nancy progress: The patient has no jmm c/o's. The wound is well-healing with no redness, swelling, discharge, or dehiscence reported. It is unknown whether or not the patient has had similar symptoms in the past. ROS: 10:18 Constitutional: Negative for fever, chills, and weight loss, Cardiovascular: Negative jmm for chest pain, palpitations, and edema, Respiratory: Negative for shortness of breath, cough, wheezing, and pleuritic chest pain. 10:18 Skin: Positive for laceration(s). 10:18 All other systems are negative. Exam: 10:18 Constitutional: This is a well developed, well nourished patient who is awake, alert, jmm and in no acute distress. 10:18 Neck: Trachea midline, Supple Chest/axilla: Normal chest wall appearance and motion. Cardiovascular: Regular rate and rhythm. No edema appreciated Respiratory: Normal respirations, no respiratory distress appreciated Abdomen/GI: Non distended, soft Back: Normal ROM Skin: General appearance color normal MS/ Extremity: Moves all extremities, no obvious deformities appreciated, no edema noted to the lower extremities Neuro: Awake and alert Psych: Behavior is normal, Mood is normal, Patient is cooperative and pleasant 10:18 Head/face: Healing laceration noted to the scalp. Vital Signs: 10:26 BP 147 / 78; Pulse 88; Resp 18; Temp 98.3(O); Pulse Ox 100% on R/A; Weight 86.18 kg mb7 (R); Height 5 ft. 8 in. (172.72 cm) (R); 10:26 Body Mass Index 28.89 (86.18 kg, 172.72 cm) mb7 MDM: 10:02 Patient medically screened. jmm 10:19 Data reviewed: vital signs, nurses notes. Counseling: I had a detailed discussion with norman the patient and/or guardian regarding: the historical points, exam findings, and any diagnostic results supporting the discharge/admit diagnosis, the need for outpatient follow up, to return to the emergency department if symptoms worsen or persist or if there are any questions or concerns that arise at home. ED course: For staple 4 nancy removed from the scalp with staple removal. Patient tolerated this well. Appears well-healed. No erythema or purulent drainage appreciated from the wound site.. Administered Medications: No medications were administered Disposition: 12:43 Co-signature as Attending Physician, Burke Ashley MD. rn Disposition Summary: 12/05/21 10:20 Discharge Ordered Location: Home [facility] Condition: Stable [facility] Diagnosis - Encounter for removal of sutures [facility] Followup: [facility] - With: Private Physician - When: As needed - Reason: Recheck today's complaints, Continuance of care, Re-evaluation by your physician Discharge Instructions: - Discharge Summary Sheet [facility] - Suture Removal, Care After [facility] Forms: - Medication Reconciliation Form [facility] - Thank You Letter [facility] - Antibiotic Education [facility] - Prescription Opioid Use [facility] Signatures: Kobi Martel PA PA Burke Coyle MD MD rn
--- NOTE | 2021-12-05 10:39 | ER ---
Nurse's Notes [facility] Name: Kailash Davis Age: 61 yrs Sex: Male : 1960 Arrival Date: 12/05/2021 Time: 09:48 Bed 9 Private MD: Diagnosis: Encounter for removal of sutures Vital Signs: 12/05 10:26 BP 147 / 78; Pulse 88; Resp 18; Temp 98.3(O); Pulse Ox 100% on R/A; Weight 86.18 kg mb7 (R); Height 5 ft. 8 in. (172.72 cm) (R); 10:26 Body Mass Index 28.89 (86.18 kg, 172.72 cm) mb7 ED Course: 09:48 Patient arrived in ED. mr 09:52 Kobi Martel PA is PHCP. norman 09:52 Burke Ashley MD is Attending Physician. jmm 10:27 Patient has correct armband on for positive identification. Bed in low position. Call mb7 light in reach. Side rails up X 1. Door closed. Noise minimized. 10:38 Tiffanie Garcia, RN is Primary Nurse. iw Administered Medications: No medications were administered Outcome: 10:20 Discharge ordered by . jmm 10:38 Patient left the ED. iw Signatures: Kobi Martel PA PA jmm Rivera, Mary mr Tiffanie Garcia, ANGEL RN Lynda Funes [facility]
[2021-12-05 10:46] VITALS: BP 147/78; TEMP 98.3; O2SAT 100
== END 2021-12-05 10:38 | disposition home or self-care (01) ==
LOC: ER 09:46
DX: Z48.02 Encounter for removal of sutures (principal)
CPT/HCPCS: 99281

== ENCOUNTER 2024-01-04 12:02 | Emergency (ER) | payer OTHER ==
[2024-01-04] MEDS ORDERED: NA CHLORIDE 0.9% 1,000 ML ONE ×2 (12:55→13:46)
[2024-01-04 12:57] LABS: Absolute Eosinophils 0.1 K/uL (0-0.5); Absolute Lymphocytes (CBC) 1.1 K/uL (0.7-4.9); Absolute Monocytes 0.4 K/uL (0.1-1.3); Absolute Neutrophil 3.1 K/uL (1.8-8.0); Basophils % 0.6 % (0-1.3); Eosinophils % 2.5 % (0-4.4); Hematocrit 46.6 % (39.6-49.0); Lymphocytes % 22.6 % (15.3-44.8); MCH 33.1 pg (27.0-35.0); MCHC 34.3 g/dL (32.0-36.0); MCV 96.7 fL (80-100); MPV 7.3 fL (7.6-11.3); Monocytes % 8.6 % (3.3-12.3); Neutrophils % 65.7 % (41.7-73.7); Nucleated Red Blood Cells % 0.1 % (0-0); Platelets 210 thou/uL (152-406); RBC Red Blood Cell Count 4.82 M/uL (4.33-5.43); Red Cell Distribution Width 12.9 % (12.1-15.2)
[2024-01-04 13:26] LABS: ALT/SGPT 59 U/L (16-61); AST/SGOT 27 U/L (15-37); Albumin 3.9 g/dL (3.4-5.0); Alkaline Phosphatase 129 U/L (45-117); Anion Gap 16.2 mEq/L (5.0-15.0); BETA HYDROXYBUTYRATE > 4.50 mmol/L (0.02-0.27); BUN Blood Urea Nitrogen 24 mg/dL (7-18); Bicarbonate 18 mEq/L (21-32); Bilirubin Direct 0.2 mg/dL (0-0.2); Bilirubin Indirect, Calculated 0.5 mg/dL (0.2-0.8); Bilirubin Total 0.7 mg/dL (0.2-1.0); Globulin 3.8 g/dL (2.3-3.5); Glomerular Filtration Rate 79 ml/min (=/>90); Glucose Level 148 mg/dL (74-106); Lipase 43 U/L (13-75); Magnesium 2.2 mg/dL (1.6-2.4); Phosphorus 3.2 mg/dL (2.5-4.9); Potassium 4.2 mEq/L (3.5-5.1); Protein, Total 7.7 g/dL (6.4-8.2); Sodium Level 136 mEq/L (136-145)
[2024-01-04 13:37] LABS: Blood Morphology Comment NOT SEEN (NOT SEEN); Platelet Estimate ADEQ; White Blood Cell Scan OK (OK)
[2024-01-04 14:30] LABS: Specific Gravity 1.026 (1.005-1.030); Sqamous Epithelial None Seen /HPF (None Seen); Urine Bacteria None Seen /HPF (<20); Urine Bilirubin NEGATIVE (Negative); Urine Blood Negative (Negative); Urine Clarity Clear (Clear); Urine Color Light-Yellow (Yellow); Urine Culture Reflex Order NOT NEEDED; Urine Glucose 4+ (Over) (Negative); Urine Ketones 4+ (Over) (Negative); Urine Micro Reflex YN NO BILL MICROSCOPIC; Urine Mucus Slight /HPF (None Seen); Urine Nitrite NEGATIVE (Negative); Urine Protein NEGATIVE (Negative); Urine RBC <5 /HPF (None Seen); Urine Urobilinogen Normal (Normal); Urine WBC None Seen /HPF (<5); Urine pH 5.5 (5.0-7.0)
--- NOTE | 2024-01-04 14:56 | EDPHYS ---
Physician Documentation [facility] Name: Kailash Davis Age: 63 yrs Sex: Male : 1960 Arrival Date: 01/04/2024 Time: 12:02 Bed 8 Private MD: ED Physician Oscar Rose HPI: 01/03 18:19 This 63 yrs old Male presents to ER via Ambulatory with complaints of High Blood Sugar. sb4 18:19 Patient stated his blood pressure has been running high over the past 3 days. States sb4 that he cannot get it under 350. He denies any recent changes in medications. States he has been drinking plenty of water. He does drink a lot of alcohol daily though. Denies any nausea or vomiting. Does report a mild headache. Historical: - Allergies: 12:24 PENICILLINS; ll1 - PMHx: 12:24 depressive disorder; enlarged prostate; GERD; Hypertensive disorder; Type 2 Diabetes ll1 Mellitus; - Immunization history:: Adult Immunizations up to date. - Infectious Disease History:: Denies. - Social history:: Smoking status: Patient reports use of chewing tobacco. Patient denies any tobacco usage or history of. ROS: 18:19 Constitutional: Negative for fever, chills, and weight loss, sb4 18:19 Neuro: Positive for headache, 18:19 Endocrine: 18:19 All other systems are negative, Exam: 18:19 Constitutional: This is a well developed, well nourished patient who is awake, alert, sb4 and in no acute distress. Head/Face: Normocephalic, atraumatic. Eyes: Extra-ocular motions intact. Periorbital areas with no swelling, redness, or edema. ENT: Mucous membranes moist. Cardiovascular: Regular rate and rhythm with a normal S1 and S2. Respiratory: Lungs have equal breath sounds bilaterally, clear to auscultation and percussion. No rales, rhonchi or wheezes noted. No increased work of breathing, no retractions or nasal flaring. Abdomen/GI: Soft, non-tender, no distension. Skin: Warm, dry with normal turgor. Normal color with no rashes, no lesions, and no evidence of cellulitis. MS/ Extremity: Pulses equal, no cyanosis. Neurovascular intact. Full, normal range of motion. Vital Signs: 12:25 BP 128 / 81; Pulse 112; Resp 16; Temp 97.9; Pulse Ox 98% ; Weight 81.65 kg; Height 5 ll1 ft. 8 in. ; Pain 3/10; 13:15 BP 122 / 72; Pulse 96; Resp 17; Pulse Ox 97% on R/A; ap3 12:25 Body Mass Index 27.37 (81.65 kg, 172.72 cm) ll1 12:25 Pain Scale: Adult ll1 MDM: 12:20 Patient medically screened. sb4 18:19 Data reviewed: vital signs, nurses notes, lab test result(s), EKG, radiologic studies, sb4 and as a result, I will discharge patient. Counseling: I had a detailed discussion with the patient and/or guardian regarding the historical points, exam findings, and any diagnostic results supporting the discharge/admit diagnosis, lab results, radiology results, to return to the emergency department if symptoms worsen or persist or if there are any questions or concerns that arise at home. 01/03 12:27 Order name: BETA HYDROXYBUTYRATE; Complete Time: 13:27 sb4 01/03 12:27 Order name: Basic Metabolic Panel; Complete Time: 13:27 sb4 01/03 12:27 Order name: CBC with Diff; Complete Time: 13:41 sb4 01/03 12:27 Order name: Hepatic Function; Complete Time: 13:27 sb4 01/03 12:27 Order name: Lipase; Complete Time: 13:27 sb4 01/03 12:27 Order name: Magnesium; Complete Time: 13:27 sb4 01/03 12:27 Order name: Phosphorus; Complete Time: 13:27 sb4 01/03 13:00 Order name: CBC Smear Scan; Complete Time: 13:41 EDMS 01/03 13:28 Order name: UAM; Complete Time: 14:32 sb4 01/03 13:32 Order name: Glucose, Ancillary Testing; Complete Time: 13:41 EDMS 01/03 12:27 Order name: Cardiac monitoring; Complete Time: 12:54 sb4 01/03 12:27 Order name: IV Saline Lock; Complete Time: 12:54 sb4 01/03 12:27 Order name: O2 Per Protocol; Complete Time: 12:54 sb4 01/03 12:27 Order name: O2 Sat Monitoring; Complete Time: 12:54 sb4 EC:13 Rate is 97 beats/min. Rhythm is regular, Normal Sinus Rhythm with Right bundle branch sb4 block. CA interval is normal at 162 msec. QRS interval is normal at 146 msec. QT interval is normal at 404 msec. No Q waves. T waves are Normal. No ST changes noted. Clinical impression: Normal ECG and No evidence of ischemia. Interpreted by me. Reviewed by me. Administered Medications: 13:01 Drug: NS 0.9% IV 1000 ml IV at 1000 ml once Route: IV; Rate: 1000 ml; Site: right ap3 forearm; 14:03 Follow up: Response: No adverse reaction; IV Status: Completed infusion; IV Intake: kc6 1000ml 14:11 Drug: NS 0.9% IV 1000 ml IV at 1 bolus Per protocol; 1000 mL bolus Route: IV; Rate: 1 kc6 bolus; Site: right wrist; 15:36 Follow up: IV Status: Completed infusion; IV Intake: 1000ml ap3 Disposition: 19:30 Co-signature as Attending Physician, Oscar Rose MD I reviewed the patient's care rt provided by the Advanced Practice Provider and agree with the diagnosis and treatment plan. Disposition Summary: 01/04/24 14:55 Discharge Ordered Notes: Location: Home sb4 Problem: new sb4 Symptoms: have improved sb4 Condition: Stable sb4 Diagnosis - Type 2 diabetes mellitus with hyperglycemia sb4 - Dehydration sb4 Followup: sb4 - With: Emergency Department - When: As needed - Reason: Trouble breathing, Worsening of condition Discharge Instructions: - Discharge Summary Sheet sb4 - Daily Diabetes Mellitus Record sb4 Forms: - Patient Portal Instructions sb4 - Leadership Thank You Letter sb4 Signatures: Dispatcher [employer] EDJuilann Padron RN RN ap3 Carlos Gar RN RN ll1 Kayleigh Jane RN RN kc6 Heide Marmolejo PAPurvi PATalatC sb4 Oscar Rose MD MD rt Corrections: (The following items were deleted from the chart) 12:27 12:27 BETA HYDROXYBUTYRATE+C.LAB.BRZ ordered. EDMS EDMS 12:27 12:27 BASIC METABOLIC PANEL+C.LAB.BRZ ordered. EDMS EDMS 12:27 12:27 CBC+H.LAB.BRZ ordered. EDMS EDMS 12:27 12:27 HEPATIC FUNCTION+C.LAB.BRZ ordered. EDMS EDMS : 12:27 LIPASE+C.LAB.BRZ ordered. EDMS EDMS 12:27 MAGNESIUM+C.LAB.BRZ ordered. EDMS EDMS : 12:27 PHOSPHORUS+C.LAB.BRZ ordered. EDMS EDMS
--- NOTE | 2024-01-04 14:56 | ER ---
Nurse's Notes [facility] Name: Kailash Davis Age: 63 yrs Sex: Male : 1960 Arrival Date: 01/04/2024 Time: 12:02 Bed 8 Private MD: Diagnosis: Type 2 diabetes mellitus with hyperglycemia;Dehydration Presentation: 01/03 12:25 Chief complaint: Patient states: Can't get blood sugar below 370's for the past 4 days. ll1 370-500+. + FIELD. Coronavirus screen: Client denies travel out of the [place] in the last 14 days. At this time, the client does not indicate any symptoms associated with coronavirus-19. Ebola Screen: Patient denies travel to an Ebola-affected area in the 21 days before illness onset. Initial Sepsis Screen: Does the patient meet any 2 criteria? No. Patient's initial sepsis screen is negative. Does the patient have a suspected source of infection? No. Patient's initial sepsis screen is negative. Risk Assessment: Do you want to hurt yourself or someone else? Patient reports no desire to harm self or others. Onset of symptoms was January 01, 2024. 12:25 Method Of Arrival: Ambulatory ll1 12:25 Acuity: JAIME 2 ll1 Historical: - Allergies: 12:24 PENICILLINS; ll1 - PMHx: 12:24 depressive disorder; enlarged prostate; GERD; Hypertensive disorder; Type 2 Diabetes ll1 Mellitus; - Immunization history:: Adult Immunizations up to date. - Infectious Disease History:: Denies. - Social history:: Smoking status: Patient reports use of chewing tobacco. Patient denies any tobacco usage or history of. Screenin:51 Abuse screen: Denies threats or abuse. Nutritional screening: No deficits noted. ap3 Tuberculosis screening: No symptoms or risk factors identified. 15:35 [facility] ED Fall Risk Assessment (Adult) History of falling in the last 3 months, ap3 including since admission No falls in past 3 months (0 pts) Confusion or Disorientation No (0 pts) Intoxicated or Sedated No (0 pts) Impaired Gait No (0 pts) Mobility Assist Device Used No (0 pt) Altered Elimination No (0 pt) Score/Fall Risk Level 0 - 2 = Low Risk Oriented to surroundings, Maintained a safe environment, Educated pt \\T\\ family on fall prevention, incl call for assistance when getting out of bed, Assessed \\T\\ reinforced patient's understanding of fall precautions, Provided non-skid footwear, Hourly rounding (assess needs \\T\\ fall precautionary measures) done, Used ambulatory aids as needed (educated on \\T\\ assisted with), Used gait belt as appropriate. Assessment: 12:53 General: Appears in no apparent distress. Behavior is calm, cooperative, appropriate ap3 for age. General: Reports "not feeling right". Pain: Denies pain. Neuro: Level of Consciousness is awake, alert, obeys commands, Oriented to person, place, time, situation, Appropriate for age. Cardiovascular: Patient's skin is warm and dry. Respiratory: Airway is patent Respiratory effort is even, unlabored, Respiratory pattern is regular, symmetrical. GI: Reports nausea. Vital Signs: 12:25 BP 128 / 81; Pulse 112; Resp 16; Temp 97.9; Pulse Ox 98% ; Weight 81.65 kg; Height 5 ll1 ft. 8 in. ; Pain 3/10; 13:15 BP 122 / 72; Pulse 96; Resp 17; Pulse Ox 97% on R/A; ap3 12:25 Body Mass Index 27.37 (81.65 kg, 172.72 cm) ll1 12:25 Pain Scale: Adult ll1 ED Course: 12:03 Patient arrived in ED. im 12:08 Heide Marmolejo PA-C is PHCP. sb4 12:08 Oscar Rose MD is Attending Physician. sb4 12:24 Arm band placed on. ll1 12:26 Triage completed. ll1 12:33 Patient placed in an exam room, on a stretcher. ll1 12:50 Initial lab(s) drawn, by wy, sent to lab. Inserted saline lock: 20 gauge in right ap3 forearm, using aseptic technique. Blood collected. 12:51 Patient has correct armband on for positive identification. Bed in low position. Call ap3 light in reach. Side rails up X2. Adult w/ patient. Provided Education on: fall risk education. Client placed on continuous cardiac and pulse oximetry monitoring. NIBP monitoring applied. color repairer on. Pulse ox on. NIBP on. 13:15 EKG done, by ED staff, reviewed by Heide Marmolejo PA-C. ap3 13:56 Juliann Randolph, RN is Primary Nurse. ap3 14:11 UAM Sent. kc6 15:35 No provider procedures requiring assistance completed. IV discontinued, intact, ap3 bleeding controlled, No redness/swelling at site. Pressure dressing applied. Administered Medications: 13:01 Drug: NS 0.9% IV 1000 ml IV at 1000 ml once Route: IV; Rate: 1000 ml; Site: right ap3 forearm; 14:03 Follow up: Response: No adverse reaction; IV Status: Completed infusion; IV Intake: kc6 1000ml 14:11 Drug: NS 0.9% IV 1000 ml IV at 1 bolus Per protocol; 1000 mL bolus Route: IV; Rate: 1 kc6 bolus; Site: right wrist; 15:36 Follow up: IV Status: Completed infusion; IV Intake: 1000ml ap3 Medication: 12:52 VIS not applicable for this client. ap3 Intake: 14:03 IV: 1000ml; Total: 1000ml. kc6 15:36 IV: 1000ml; Total: 2000ml. ap3 Outcome: 14:55 Discharge ordered by MD. sb4 15:36 Discharged to home ambulatory, with family, ap3 15:36 Condition: good 15:36 Discharge instructions given to patient, Instructed on discharge instructions, follow up and referral plans. Demonstrated understanding of instructions, follow-up care, 15:36 Patient left the ED. ap3 Signatures: Juliann Randolph, ANGEL ORTIZ ap3 Carlos Gar RN RN ll1 Kayleigh Jane RN RN thomas6 Heide Marmolejo, PA-C PA-C sb4 Kimberlee Bradford
[2024-01-04 19:55] VITALS: BP 122/72; TEMP 97.9; O2SAT 97
--- NOTE | 2024-01-05 13:05 | EKG ---
Test Date: 2024-01-04 Test Time: 13:09:31 Compensation Associate: ALP MEASUREMENT RESULTS: Intervals: Rate: 97 [place]: 162 QRSD: 146 QT: 404 QTc: 513 [place]: P: 65 [place]: 162 QRS: 36 T: 18 INTERPRETIVE STATEMENTS: Normal sinus rhythm Right bundle branch block Abnormal ECG Compared to ECG 01/15/2019 10:11:35 No significant changes Electronically Signed On 01-05-24 13:03:08 CDT by Elijah Mccarthy
== END 2024-01-04 15:36 | disposition home or self-care (01) ==
LOC: ER 12:02
DX: E11.65 Type 2 diabetes mellitus with hyperglycemia (principal); E86.0 Dehydration
CPT/HCPCS: 85025; 81001; 80048; 36415; 83735; 84100; 82947; 80076; 83690; 82010; J7030 ×2; 93005

== ENCOUNTER 2025-04-21 17:34 | Emergency (ER) | payer OTHER ==
[2025-04-21] MEDS ORDERED: TDAP (DIPHTH,PERTUSS(ACELL),TET VAC) 0.5 ML VIAL IMVAC ONE (17:41)
[2025-04-21] MEDS ORDERED: ONDANSETRON 4 MG/2 ML VIAL ONE (17:43)
[2025-04-21] MEDS ORDERED: FENTANYL CITR 100 MCG/2 ML ONE (17:43)
[2025-04-21 17:58] LABS: Absolute Lymphocytes (CBC) 3.0 K/uL (0.7-4.9); Hematocrit 45.2 % (39.6-49.0); Hemoglobin 15.4 g/dL (13.6-17.9); MCH 31.0 pg (27.0-35.0); MCHC 34.0 g/dL (32.0-36.0); MCV 91.0 fL (80-100); MPV 8.0 fL (7.6-11.3); Nucleated RBC Absolute Count 0.0 (0-0); Nucleated Red Blood Cells % 0.2 % (0-0); RBC Red Blood Cell Count 4.97 M/uL (4.33-5.43); White Blood Count 8.60 thou/uL (4.3-10.9)
[2025-04-21 18:19] LABS: Anion Gap 13.6 mEq/L (5.0-15.0); BUN Blood Urea Nitrogen 14.0 mg/dL (7-18); Glucose Level 156.0 mg/dL (74-106); Potassium 3.6 mEq/L (3.5-5.1)
[2025-04-21] MEDS ORDERED: MORPHINE 4 MG/ML SYR ONE (18:22)
--- NOTE | 2025-04-21 18:45 | RAD REPORT ---
EXAM: CT brain without contrast HISTORY: TRAUMA COMPARISON: 11/24/2021 TECHNIQUE: Multiple contiguous axial images were obtained and a CT of the brain without contrast. Sag ittal and coronal reformats were performed. FINDINGS: No evidence of hydrocephalus, intracranial hemorrhage, or extra-axial fluid collection. The brain is normal in morphology. The calvarium is intact. Fractures along the left superior orbital margin better evaluated on facial CT of the same day. The visualized paranasal sinuses and mastoid air cells are essentially clear. IMPRESSION: No evidence of acute intracranial abnormality. EXAM: CT of the cervical spine without contrast HISTORY: TRAUMA COMPARISON: None TECHNIQUE: Multiple contiguous axial images were obtained in a CT of the cervical spine without contr ast. Sagittal and coronal reformats were performed. FINDINGS: The vertebral bodies demonstrate normal height and alignment. No evidence of acute fracture or subluxation.. No degenerative changes are present. No prevertebral soft tissue swelling is seen. The posterior facets are well aligned. Normal alignment of the skull base with the cervical spine is seen. The lung apices are unremarkable. IMPRESSION: No evidence of acute osseous abnormality of the cervical spine.
--- NOTE | 2025-04-21 18:48 | RAD REPORT ---
EXAMINATION: CT MAXILLOFACIAL WITHOUT CONTRAST CLINICAL INDICATION: [facility] MAIN TRAUMA Bed Name: 3 TECHNIQUE: Axial images were obtained through the facial bones and orbits without intravenous contras t. Sagittal and coronal reconstructions were created from the data. One or more of the following dose reduction techniques were used: Automated exposure control, adjustment of the mA and/or kV accor ding to patient size, and/or iterative reconstruction. Unless otherwise specified, incidental findings do not require dedicated imaging follow-up. COMPARISON: No prior exam. FINDINGS: SOFT TISSUE: Superior left orbital margin lacerations. Soft tissue swelling along the left preseptal space and adjacent aspect of the extraconal space superiorly. BONES: Comminuted fractures along the superior orbital margin on the left. No other acute fracture, d islocation, or aggressive osseous lesions. No lesion of the visualized skull base or calvarium. ORBITS: The globes are intact. No intraorbital hemorrhage or mass. Fracture fragments extend along th e anterior aspect of the extraconal space, reaching the musculotendinous junction of the superior rectus muscle. The muscle belly is not asymmetrically thickened. No retroconal edema. Optic nerves ap pear symmetric. SINUSES: The paranasal sinuses and tympanomastoid cavities are predominantly clear. IMPRESSION: Comminuted fractures along the left superior orbital margin extending along the anterior aspect of th e extraconal space as above. THIS REPORT CONTAINS FINDINGS THAT MAY BE CRITICAL TO PATIENT CARE. The findings were verbally commun icated via telephone to Yasir A Page, PAC on 04/21/2025 6:43 PM.
--- NOTE | 2025-04-21 18:57 | ER ---
Nurse's Notes [facility] Name: Kailash Davis Age: 64 yrs Sex: Male : 1960 Arrival Date: 04/21/2025 Time: 17:34 Bed 3 Private MD: Diagnosis: Open Comminuted Fractures of Superior Orbit with extension along Anterior Extraconal Space;Open Comminuted Fracture Distal Third of Right Ulna Presentation: 04/21 17:41 Chief complaint: Spouse and/or significant other states: PT WAS MOVING TREES IN THE dd2 YARD AND THE STRAP BROKE, THE MEDAL BUCKLE BROKE AND HIT LT EYE AND RT FOREARM. Coronavirus screen: At this time, the client does not indicate any symptoms associated with coronavirus-19. Ebola Screen: No symptoms or risks identified at this time. Initial Sepsis Screen: Does the patient meet any 2 criteria? No. Patient's initial sepsis screen is negative. Does the patient have a suspected source of infection? No. Patient's initial sepsis screen is negative. Risk Assessment: Do you want to hurt yourself or someone else? Patient reports no desire to harm self or others. Onset of symptoms was April 21, 2025. 17:41 Method Of Arrival: Wheelchair dd2 17:41 Acuity: JAIME 2 dd2 Triage Assessment: 17:43 General: Appears uncomfortable, Behavior is cooperative, appropriate for age, anxious. dd2 Pain: Complains of pain in outer aspect of left eyebrow and palmar aspect of right forearm. Derm:. Injury Description: Deformity sustained to palmar aspect of right forearm Laceration sustained to outer aspect of left eyebrow is bleeding profusely at this time. Historical: - Allergies: 17:43 PENICILLINS; dd2 - PMHx: 17:43 depressive disorder; enlarged prostate; GERD; Hypertensive disorder; Type 2 Diabetes dd2 Mellitus; - Immunization history:: Adult Immunizations unknown. - Infectious Disease History:: Denies. - Social history:: Smoking status: unknown. Screenin:59 [facility] ED Fall Risk Assessment (Adult) History of falling in the last 3 months, nh2 including since admission No falls in past 3 months (0 pts) Confusion or Disorientation No (0 pts) Intoxicated or Sedated No (0 pts) Impaired Gait No (0 pts) Mobility Assist Device Used No (0 pt) Altered Elimination No (0 pt) Score/Fall Risk Level 0 - 2 = Low Risk Oriented to surroundings, Maintained a safe environment, Educated pt \T\ family on fall prevention, incl call for assistance when getting out of bed, Assessed \T\ reinforced patient's understanding of fall precautions. Abuse screen: Denies threats or abuse. Denies injuries from another. Nutritional screening: No deficits noted. Tuberculosis screening: No symptoms or risk factors identified. Assessment: 17:51 General: Appears distressed, uncomfortable, Behavior is cooperative, restless. Pain: nh2 Complains of pain in right arm Pain does not radiate. Pain currently is 10 out of 10 on a pain scale. Quality of pain is described as aching, Pain began 1 hour ago. Is continuous, Noted to be grimacing, moaning, resistant to movement, restless. Neuro: Level of Consciousness is awake, alert, obeys commands, Oriented to person, place, time, situation, Appropriate for age. Cardiovascular: Patient's skin is warm and dry. Rhythm is sinus rhythm. Respiratory: Airway is patent Trachea midline Respiratory effort is even, unlabored, Respiratory pattern is hyperventilation tachypnea. GI: Abdomen is round non-distended, Patient currently denies nausea, vomiting. : No signs and/or symptoms were reported regarding the genitourinary system. Derm: Skin is diaphoretic. Musculoskeletal: Circulation, motion, and sensation intact. Range of motion: intact in all extremities. Injury Description: Laceration sustained to right forearm is 3-4 inches with tendon exposure was sustained 30-60 minutes ago. saline dressing applied a small amount of bleeding noted at this time. 17:51 Injury Description: Laceration sustained to left eyebrow is 2.6 to 7.5 cm long, nh2 bleeding moderately, was sustained 30-60 minutes ago. dressing applied. 17:51 Injury Description: Laceration sustained to left space under eye is 0.5 to 2.5 cm long, nh2 was sustained 30-60 minutes ago. A dressing was applied. 18:03 Reassessment: pt still diaphoretic, shaking in bed, tachypneic, and complaining of nh2 10/10 pain. Provider notified. 18:05 Reassessment: pt transported to CT via stretcher. nh2 18:20 Reassessment: pt back from CT, reconnected to monitor. Respirations symmetrical and nh2 tachypneic. Reports still having 10/10 pain. Provider notified, educated on being NPO per MD order. Call light within reach. 18:45 Reassessment: Patient and/or family updated on plan of care and expected duration. Pain nh2 level reassessed. Patient is alert, oriented x 3, equal unlabored respirations, skin warm/dry/pink. Patient states feeling better. 19:15 General: Appears in no apparent distress. uncomfortable, Behavior is calm, cooperative. mf3 Pain: Complains of pain in right arm Pain currently is 10 out of 10 on a pain scale. Neuro: Level of Consciousness is awake, alert, obeys commands, Oriented to person, place, time. Cardiovascular: Capillary refill < 3 seconds. Respiratory: Airway is patent Trachea midline. GI: Abdomen is round non-distended. : No signs and/or symptoms were reported regarding the genitourinary system. 20:58 Reassessment: No changes from previously documented assessment. Patient is alert, mf3 oriented x 3, equal unlabored respirations, skin warm/dry/pink. Patient states feeling better. Patient states symptoms have improved. pt denies pain . Pain: Denies pain. Neuro: Level of Consciousness is awake, alert, obeys commands, Oriented to person, place, time, situation. Vital Signs: 17:41 BP 112 / 77; Pulse 74; Resp 22; Pulse Ox 100% ; Weight 68.95 kg; dd2 18:04 BP 123 / 68; Pulse 88; Resp 30; Temp 97.2(TE); Pulse Ox 100% on R/A; nh2 19:05 BP 130 / 80; Pulse 95; Resp 20; Pulse Ox 98% on R/A; nh2 19:31 BP 131 / 78; Pulse 72; Resp 20; Pulse Ox 100% ; jj7 20:00 BP 138 / 76; Pulse 112; Resp 15; Temp 97.3; Pulse Ox 99% on 2 lpm NC; mf3 20:45 BP 134 / 77; Pulse 113; Resp 18; Pulse Ox 99% on 2 lpm NC; mf3 [place] Coma Score: 17:50 Eye Response: spontaneous(4). Motor Response: obeys commands(6). Verbal Response: cp oriented(5). Total: 15. ED Course: 17:34 Patient arrived in ED. bc6 17:37 [facility] Cochran [facility]. cp 17:37 Tomy Jordan DO is Attending Physician. cp 17:39 Arm band placed on left wrist. nh2 17:41 Inserted saline lock: 20 gauge in left forearm, using aseptic technique. Blood nh2 collected. Flushed with 10 mL NS. 17:41 Initial lab(s) drawn, by ED staff, held in ED. nh2 17:43 Triage completed. dd2 17:50 Patient has correct armband on for positive identification. Bed in low position. Call nh2 light in reach. Side rails up X 1. Provided Education on: using call light for assistance. 17:59 Javi West Jr, RN is Primary Nurse. nh2 18:19 CT Head C Spine In Process Unspecified. EDMS 18:19 CT Facial Bones W/O Con In Process Unspecified. EDMS 19:01 XRAY Wrist RIGHT 3 view In Process Unspecified. EDMS 19:01 XRAY Chest (1 view) In Process Unspecified. EDMS 19:03 initiated with spoke with Stan. vk 19:32 Patient was accepted to [facility] ER to Dr. Galarza \[id number] accepted to admin Stan Diego report vk number [phone] fax number [phone]. 20:58 Patient transferred, IV remains in place. intact, bleeding controlled, No mf3 redness/swelling at site. 20:58 No provider procedures requiring assistance completed. mf3 Administered Medications: 17:58 Drug: Ondansetron IVP 4 mg IVP once; over 2 minutes Route: IVP; Site: left forearm; aa5 18:31 Follow up: Response: No adverse reaction nh2 17:59 Drug: fentaNYL (PF) IVP 50 mcg IVP once Route: IVP; Site: left forearm; aa5 18:31 Follow up: Response: No adverse reaction; Pain is unchanged, physician notified; RASS: nh2 Alert and Calm (0) 18:00 Drug: Boostrix Tdap IM 0.5 ml IM once; as a single dose Route: IM; Site: right deltoid; nh2 18:31 Follow up: Response: No adverse reaction nh2 18:25 Drug: morphine IVP or IV 4 mg IVP once over 4 mins Route: IVP; Infused Over: 4 mins; nh2 Site: left forearm; 19:06 Follow up: Response: No adverse reaction; Pain is decreased nh2 19:15 Drug: Clindamycin IVPB 600 mg IVPB once over 30 mins; (mix in 50 mL) Route: IVPB; mf3 Infused Over: 30 mins; Site: left forearm; 19:15 Drug: NS 0.9% IV 1000 ml IV at 1 bolus Per protocol; to be given as a bolus over 60 mf3 minutes Route: IV; Rate: 1 bolus; Site: left forearm; 19:31 Drug: HYDROmorphone IVP 1 mg IVP once; may give prior to transfer if systolic pressure jj7 >120 Route: IVP; Site: left antecubital; Medication: 20:58 VIS not applicable for this client. 3 Outcome: 18:57 ER care complete, transfer ordered by MD. sanches 20:59 Transferred by ground EMS to [facility] 20:59 Condition: stable 20:59 Discharge instructions given to patient, Instructed on the need for transfer, 20:59 Patient left the ED. 3 Signatures: Dispatcher [employer] EDMS Gabby George, RN RN aa5 Yasir Cochran, PA-C PA-C Tracey Olmos RN RN jj7 Dinorah Benoit Vivian vk DAVIS, DIANA, RN RN dd2 Javi West Jr, RN RN nh2 Shanice Martinez RN RN mf3 Corrections: (The following items were deleted from the chart) 17:59 17:51 Injury Description: Laceration sustained to left eyelid is 2.6 to 7.5 cm long, nh2 bleeding moderately, was sustained 30-60 minutes ago. dressing applied nh2
--- NOTE | 2025-04-21 18:57 | EDPHYS ---
Physician Documentation [facility] Name: Kailash Davis Age: 64 yrs Sex: Male : 1960 Arrival Date: 04/21/2025 Time: 17:34 Bed 3 Private MD: ED Physician Tomy Jordan HPI: 04/21 17:40 This 64 yrs old Male presents to ER via Wheelchair with complaints of Laceration To Arm cp - and left eyebrow. 17:40 Trauma demographics: County: The injury occurred in [place] Location of Injury: The cp injury occurred outdoors, Date: April 21, 2025. Mechanism of injury: direct blow. Associated injuries: The patient sustained injury to the head, laceration, of the above left eye, right wrist, decreased range of motion, laceration. Onset: The symptoms/episode began/occurred just prior to arrival. 17:40 Patient is a 64-year-old male who presents to the emergency department with injuries to cp his head and right forearm. Patient reports he was working in his yard removing trees when the strap used to secure the trees broke causing the metal piece to strike him in the forehead and right forearm. Historical: - Allergies: 17:43 PENICILLINS; dd2 - PMHx: 17:43 depressive disorder; enlarged prostate; GERD; Hypertensive disorder; Type 2 Diabetes dd2 Mellitus; - Immunization history:: Adult Immunizations unknown. - Infectious Disease History:: Denies. - Social history:: Smoking status: unknown. ROS: 17:45 Skin: Positive for laceration(s), of the above left eye and lower forehead, cp 17:45 MS/extremity: Positive for injury or acute deformity, decreased range of motion, of the cp right forearm, 17:45 Constitutional: Negative for fever, cp 17:45 Eyes: Negative for vision loss, 17:45 Cardiovascular: Negative for chest pain, 17:45 Neuro: Positive for headache, Negative for altered mental status, 17:45 All other systems are negative, Exam: 17:50 Constitutional: The patient appears non-toxic, well developed, well nourished, cp diaphoretic, in obvious distress, moderately distressed, in obvious pain, uncomfortable, 17:50 Head/face: Noted is a laceration(s), that is deep, of the above left eye and lower cp forehead, 17:50 Eyes: Pupils: equal, round, and reactive to light and accomodation, Extraocular movements: intact throughout, Conjunctiva: normal, Sclera: no appreciated abnormality, Lids and lashes: appear normal, bilaterally, 17:50 ENT: External ear(s): are unremarkable, Nose: is normal, Mouth: Lips: moist, Oral mucosa: moist, Posterior pharynx: Airway: no evidence of obstruction, patent, 17:50 Neck: C-spine: vertebral tenderness, is not appreciated, crepitus, is not appreciated, 17:50 Chest/axilla: Inspection: normal, Palpation: is normal, no crepitus, no tenderness, 17:50 Cardiovascular: Rate: tachycardic, Rhythm: regular, Edema: is not appreciated, JVD: is not appreciated, 17:50 Respiratory: the patient does not display signs of respiratory distress, Respirations: labored breathing, that is mild, Breath sounds: are clear throughout, no decreased breath sounds, no stridor, no wheezing, 17:50 Abdomen/GI: Inspection: abdomen appears normal, Palpation: abdomen is soft and non-tender, in all quadrants, 17:50 Musculoskeletal/extremity: large laceration noted dorsal side right wrist along ulna side with mild bleeding, tendon exposed, patient unable to extend wrist and fully spread hand. 17:50 Neuro: Orientation: to person, place, situation, Mentation: is normal, Motor: moves all fours, Vital Signs: 17:41 BP 112 / 77; Pulse 74; Resp 22; Pulse Ox 100% ; Weight 68.95 kg; dd2 18:04 BP 123 / 68; Pulse 88; Resp 30; Temp 97.2(TE); Pulse Ox 100% on R/A; nh2 19:05 BP 130 / 80; Pulse 95; Resp 20; Pulse Ox 98% on R/A; nh2 19:31 BP 131 / 78; Pulse 72; Resp 20; Pulse Ox 100% ; jj7 20:00 BP 138 / 76; Pulse 112; Resp 15; Temp 97.3; Pulse Ox 99% on 2 lpm NC; mf3 20:45 BP 134 / 77; Pulse 113; Resp 18; Pulse Ox 99% on 2 lpm NC; mf3 [place] Coma Score: 17:50 Eye Response: spontaneous(4). Motor Response: obeys commands(6). Verbal Response: cp oriented(5). Total: 15. MDM: 17:37 Medical Screening Exam initiated cp 18:00 Differential diagnosis: closed head injury, extremity fracture, C spine fracture, cp superficial laceration, tendon injury, vascular injury. 19:00 Data reviewed: vital signs, nurses notes, lab test result(s), radiologic studies, CT cp scan, plain films, I have discussed the patient's presentation/case with the attending Emergency Department Physician; and as a result, I will administer antibiotics clindamycin. 19:00 I considered the following discharge prescriptions or medication management in the emergency department Medications were administered in the Emergency Department. See MAR. Care significantly affected by the following chronic conditions: Diabetes, Hypertension. Counseling: I had a detailed discussion with the patient and/or guardian regarding the historical points, exam findings, and any diagnostic results supporting the discharge/admit diagnosis, radiology results, the need to transfer to another facility, for higher level of care, [facility] does not immediately have the required specialist. Response to treatment: the patient's symptoms have mildly improved after treatment. 04/21 17:40 Order name: Basic Metabolic Panel; Complete Time: 18:45 04/21 18:45 Interpretation: Normal except: GLUC 156; GFR 61; CA 10.2. 04/21 17:40 Order name: CBC with Diff; Complete Time: 18:45 04/21 18:48 Interpretation: Normal except: BASO% 1.4. 04/21 17:40 Order name: Type And Screen; Complete Time: 18:45 04/21 17:40 Order name: XRAY Wrist RIGHT 3 view 04/21 17:40 Order name: CT Head C Spine; Complete Time: 18:52 04/21 17:40 Order name: CT Facial Bones W/O Con; Complete Time: 18:52 04/21 17:40 Order name: XRAY Chest (1 view) 04/21 17:40 Order name: Labs collected and sent; Complete Time: 17:59 04/21 19:16 Order name: NPO; Complete Time: 19:31 cp Administered Medications: 17:58 Drug: Ondansetron IVP 4 mg IVP once; over 2 minutes Route: IVP; Site: left forearm; aa5 18:31 Follow up: Response: No adverse reaction nh2 17:59 Drug: fentaNYL (PF) IVP 50 mcg IVP once Route: IVP; Site: left forearm; aa5 18:31 Follow up: Response: No adverse reaction; Pain is unchanged, physician notified; RASS: nh2 Alert and Calm (0) 18:00 Drug: Boostrix Tdap IM 0.5 ml IM once; as a single dose Route: IM; Site: right deltoid; nh2 18:31 Follow up: Response: No adverse reaction nh2 18:25 Drug: morphine IVP or IV 4 mg IVP once over 4 mins Route: IVP; Infused Over: 4 mins; nh2 Site: left forearm; 19:06 Follow up: Response: No adverse reaction; Pain is decreased nh2 19:15 Drug: Clindamycin IVPB 600 mg IVPB once over 30 mins; (mix in 50 mL) Route: IVPB; mf3 Infused Over: 30 mins; Site: left forearm; 19:15 Drug: NS 0.9% IV 1000 ml IV at 1 bolus Per protocol; to be given as a bolus over 60 mf3 minutes Route: IV; Rate: 1 bolus; Site: left forearm; 19:31 Drug: HYDROmorphone IVP 1 mg IVP once; may give prior to transfer if systolic pressure jj7 >120 Route: IVP; Site: left antecubital; Disposition: 20:08 I was immediately available on-site in the Emergency Department for consultation in the ms3 care of the patient. Disposition Summary: 04/21/25 18:57 Transfer Ordered Notes: Transfer Location: [facility] cp Reason: Higher level of care cp Condition: Stable cp Problem: new cp Symptoms: have improved cp Accepting Physician: DR Galarza(04/21/25 20:59) mf3 Diagnosis - Open Comminuted Fractures of Superior Orbit with extension along Anterior cp Extraconal Space - Open Comminuted Fracture Distal Third of Right Ulna cp Forms: - Medication Reconciliation Form cp - SBAR form cp Signatures: Dispatcher [employer] EDGabby Harrison, RN RN aa5 Yasir Cochran PA-C PATomy Perez cp, DO DO ms3 Tracey Luque RN RN jj7 DIAN TYSON RN RN dd2 Javi West Jr, RN RN nh2 Shanice Martinez RN RN mf3 Corrections: (The following items were deleted from the chart) 17:40 17:40 Wrist Right 3 View+RAD.RAD.BRZ ordered. EDMS EDMS 17:40 17:40 Head C Spine MPR Wo Con+CT.RAD.BRZ ordered. EDMS EDMS 17:40 17:40 Facial Bones W/ MPR+CT.RAD.BRZ ordered. EDMS EDMS 17:40 17:40 Chest Single View+RAD.RAD.BRZ ordered. EDMS EDMS 19:16 18:57 DR cp cp 20:59 19:16 DR Galarza cp mf3 04/22 18:33 18:31 MS/extremity: Positive for injury or acute deformity, decreased range of motion, cp of the right forearm, cp 18:33 18:31 Skin: Positive for laceration(s), of the above left eye and lower forehead, cp cp
[2025-04-21] MEDS ORDERED: NA CHLORIDE 0.9% 1,000 ML ONE (19:06)
[2025-04-21] MEDS ORDERED: CLINDAMYCIN 600MG/D5W 50 ML IV ONE (19:06)
--- NOTE | 2025-04-21 19:15 | RAD REPORT ---
EXAM: XR Wrist Right 3 View HISTORY: [facility] MAIN PAIN Bed Name: 3 COMPARISON: None TECHNIQUE: 3 views of the right wrist. FINDINGS: Comminuted mildly displaced fractures with overlying laceration along the distal ulnar meta diaphysis. Joint alignment is maintained. No significant degenerative changes are present. IMPRESSION: Comminuted distal ulnar metadiaphyseal fractures.
--- NOTE | 2025-04-21 19:15 | RAD REPORT ---
EXAMINATION: ONE VIEW CHEST XR CLINICAL INDICATION: Male, 64 years old.,TRAUMA TECHNIQUE: Frontal chest projection is submitted. Examination is limited by patient positioning and t echnique. COMPARISON: 01/15/2019 FINDINGS: The lungs are grossly clear although suboptimal inspiratory effort somewhat limits evaluation. No pn eumothorax or sizable effusion. The heart is normal in size. Mediastinal contours are unremarkable. IMPRESSION: No acute intrathoracic abnormalities.
[2025-04-21] MEDS ORDERED: HYDROMORPHONE HCL 1 MG/ML INJ ONE (19:27)
[2025-04-21 21:43] VITALS: TEMP 97.3; O2SAT 99
[2025-04-21 21:44] VITALS: BP 134/77
== END 2025-04-21 20:59 | disposition short-term general hospital (02) ==
LOC: ER 17:34
DX: S02.85XB Fracture of orbit, unspecified, initial encounter for open fracture (principal); S52.601B Unspecified fracture of lower end of right ulna, initial encounter for open fracture type I or II; W22.8XXA Striking against or struck by other objects, initial encounter; Z23 Encounter for immunization
CPT/HCPCS: 85025; 80048; 36415; 86900; 86850; 86901; 70450; 72125; 70486; 76377; 71045; 73110; 90715; 96372; 99285; J3010; J1171; J2405; J7030